=== PATIENT | female | born 1955 | race Caucasian/White ===

== ENCOUNTER 2020-04-25 19:12 | Outpatient (REF) | payer BC, MEDICARE, SELFPAY ==
--- NOTE | ~2020-04-25 | MR_ITS ---
EXAMINATION: MR CERVICAL SPINE WITHOUT CONTRAST CLINICAL INFORMATION: 65-year-old with severe headaches. Cervical disc herniation. COMPARISON: 09/21/2014 MRI TECHNIQUE: MRI of the cervical spine was obtained using routine sequences without contrast. FINDINGS: Alignment: Lordotic curvature is predominately maintained. There is 2 mm of anterolisthesis at C7-T1 stable in appearance. No retrolisthesis. Craniocervical Junction/C1-C2 Articulations:?Intact and aligned. There are degenerative changes at the dens and anterior atlantodental joint similar to the previous exam. Visualized Intracranial Structures: Within normal limits. Vertebral Bodies: Normal height. Bone Marrow: No suspicious marrow replacing process or bone marrow edema. There is ferromagnetic artifact from anterior spinal fusion hardware at the C5-C6 level. No focally aggressive osseous lesions. C2-C3: Disc space height is well maintained without disc herniation or spondylosis. There is oxns-iz-kwapusyk facet arthrosis, right more than left, without significant canal or neural foraminal stenosis. C3-C4: Disc space height is well maintained. Small central disc protrusion noted, slightly more prominent than on the previous exam with wbdt-ku-toijxgub flattening of the central dural sac without cord impingement. Mild ligamentum flavum thickening or buckling noted. Moderate bilateral facet arthrosis noted, progressed from previous study without significant spinal canal or neural foraminal stenosis. C4-C5: Disc space height is well maintained with minor anterior marginal endplate spurring. There is a broad-based posterior disc osteophyte complex, with effacement of the central dural sac abutting the ventral aspect of the spinal cord without cord compression. There is minor facet arthrosis on the left, and there is facet hypertrophic change with ankylosis on the right. There is mild left-sided and moderate right-sided neural foraminal stenosis. Facet ankylosis on the right has developed since the previous MRI and posterior disc osteophyte complex is slightly more prominent, with borderline central spinal canal stenosis on current study. C5-C6: Previous ACDF noted at this level since the prior study. Broad-based posterior osteophytic ridging is noted, but improved from previous study on the left, with flattening of the dural sac asymmetric to the left without spinal cord impingement or significant spinal canal stenosis. There is bfdvlzgk-jc-mzbdqb bony neural foraminal stenosis on the left stable in appearance. C6-C7: Moderate loss of disc space height has progressed from previous study at this level, with development of moderate anterior marginal spondylosis deformans. Broad-based central disc herniation has progressed from previous exam, with moderate flattening of the dural sac on current study without cord impingement. Ligamentum flavum thickening has progressed at this level, now with reen-db-dvyoqimm central spinal canal stenosis. There is moderate bilateral facet arthrosis progressed from previous study with bilateral uncovertebral arthrosis, left more than right on current exam. There is moderate left-sided neural foraminal stenosis developed since previous exam. C7-T1: Disc space height is well maintained with slight anterolisthesis stable in appearance. No disc herniation identified. There is facet ankylosis on the right and partially on the left, which has developed since the previous exam with no significant canal or neural foraminal stenosis. T1-T2: Mild anterior marginal endplate spurring stable in appearance. There is moderate facet arthrosis on the left progressed from previous exam, now with mild left-sided neural foraminal stenosis at this level. There is facet hypertrophic degenerative change on the right at T2-T3 progressed from previous study with mild right-sided neural foraminal stenosis. The cervical and visualized upper thoracic spinal cord is normal in signal intensity throughout without focal lesion, edema or syrinx formation. MR/MR cervical spine wo con IMPRESSION: 1. Status post ACDF at C5-C6, as described above, with metallic hardware artifact and posterior osteophytic ridging with an improved appearance to the canal at this level since prior study. Jxqtbqvr-kk-lcrbsm bony neural foraminal stenosis on the left stable in appearance. 2. Multilevel bilateral facet arthrosis, some of which is progressed from previous exam, now with ankylosis of the right C4-C5 facet joint since prior study and progression of bilateral facet arthrosis at C3-C4. There is facet joint ankylosis on the right at C7-T1 which has developed since previous exam, and there is moderate bilateral facet arthrosis at C6-C7 progressed from previous study. 3. Posterior disc osteophyte complex at C4-C5 more prominent than on the previous exam which abuts the ventral aspect of the spinal cord without cord compression, with ptgqxopcgb-td-mkkc canal stenosis at this level on current study. Mild central disc protrusion at C3-C4 slightly progressed and broad-based central disc protrusion at C6-C7 progressed from previous exam, with development of discogenic degenerative change and spondylosis at this level since the prior study, now with wcic-kn-vgphgikq central spinal canal stenosis. 4. Stable mild anterolisthesis at C7-T1. 5. Upper thoracic facet arthrosis, as described above.
== END 2020-04-25 19:13 | disposition home or self-care (01) ==
LOC: HO.MRI 19:12
PROVIDERS: PCP Family Medicine; Visit Provider Psychiatry & Neurology Neurology
DX: M50.20 Other cervical disc displacement, unspecified cervical region (principal)
CPT/HCPCS: 72141

== ENCOUNTER → 2020-05-03 13:31 | Outpatient (BNVA) | payer MEDICARE, SELFPAY | PROVIDERS: PCP Family Medicine; Visit Provider Internal Medicine | DX: R07.2 Precordial pain (principal); I10 Essential (primary) hypertension; I51.7 Cardiomegaly; I49.1 Atrial premature depolarization | CPT/HCPCS: 99212 ==

== ENCOUNTER 2020-08-18 15:30 | Emergency (ER) | payer MEDICARE, SELFPAY ==
[2020-08-18 15:33] VITALS: BP 140/84; PULSE 120; RESP 20; TEMP 37.2; O2SAT 95; BMI 39.1
== END 2020-08-18 18:12 | disposition left against medical advice (07) ==
PROVIDERS: Emergency Provider Emergency Medicine; PCP Family Medicine
DX: R51.9 Headache, unspecified (principal)
CPT/HCPCS: 99281; 99282

== ENCOUNTER 2020-08-28 13:57 | Outpatient (REF) | payer MEDICARE, SELFPAY ==
[2020-08-28 14:04] LABS: MANUAL DIFF FLAG NO
[2020-08-28 14:41] LABS: Basophils Absolute Auto 0.1 X10*3/uL (0.0-0.2); Basophils Percent Auto 0.6 % (0-2); Eosinophils Absolute Auto 0.2 X10*3/uL (0.0-0.4); Eosinophils Percent Auto 1.8 % (0-4); Hemoglobin 16.5 g/dl (12.0-16.0); Imm Gran Abs Auto 0.02 X10*3/uL (0.00-0.03); Imm Gran Pct Auto 0.2 % (0.0-0.4); Lymphocytes Absolute Auto 2.5 X10*3/uL (1.2-4.9); Lymphocytes Percent Auto 29.2 % (20-40); Mean Corpuscular HGB Conc 34.4 g/dl (31.0-35.0); Mean Corpuscular Hemoglobin 30.3 pg (27.0-33.0); Mean Corpuscular Volume 88.1 fL (80-98); Mean Platelet Volume 10.4 fL (9.4-12.3); Monocytes Absolute Auto 0.6 X10*3/uL (0.1-1.2); Monocytes Percent Auto 7.4 % (2-11); Neutrophils Absolute Auto 5.2 X10*3/uL (2.0-8.3); Neutrophils Percent Auto 60.8 % (45-73); Platelet Count 272 X10*3/uL (160-400); Red Blood Count 5.45 X10*6/uL (4.20-5.50); Red Cell Distribution Width 13.2 % (11.0-16.0); White Blood Count 8.5 X10*3/uL (4.8-10.8)
[2020-08-28 15:14] LABS: Anion Gap 13 (12-20); Blood Urea Nitrogen 14 mg/dL (9-16); Calcium 9.1 mg/dL (8.4-10.2); Carbon Dioxide 21 mmol/L (22-29); Chloride 112 mmol/L (96-108); Estimated Glomerular Filt Rate 50; Glucose Random 95 mg/dL (60-115); Potassium 4.4 mmol/L (3.3-5.1); Sodium 142 mmol/L (135-145)
[2020-08-28 15:30] LABS: Erythrocyte Sedimentation Rate 7 MM/HR (0-20)
== END 2020-08-28 13:58 | disposition home or self-care (01) ==
LOC: HO.LAB 13:57
PROVIDERS: PCP Family Medicine; Visit Provider Psychiatry & Neurology Neurology
DX: G43.909 Migraine, unspecified, not intractable, without status migrainosus (principal)
CPT/HCPCS: 36415; 80048; 85025; 85652

== ENCOUNTER 2020-09-10 09:22 | Outpatient (REF) | payer MEDICARE, SELFPAY ==
--- NOTE | ~2020-09-10 | CT_ITS ---
EXAMINATION: CT ANGIOGRAM BRAIN, HEAD CLINICAL INFORMATION: Migraine. COMPARISON: Head CT 05/05/2019. TECHNIQUE: Test bolus sequences followed by intravenous administration 75 mL of Omnipaque 350 intravenous contrast. Helical imaging was performed in the axial plane from the skull base to the vertex. Delayed postcontrast imaging of the head was also performed. The data was processed at the isotope technologist workstation for generation of MIP sequences. Three-dimensional volume rendered reformatted images were also generated at an offline 3-D workstation. This CT examination was performed using dose optimization techniques as appropriate, variously including the following: *Automated exposure control *Adjustment of mA and/or kV according to patient size (this includes techniques or standardized protocols for targeted exams where dose is matched to indication/reason for exam; i.e. extremities or head) *Use of iterative reconstruction technique FINDINGS: The anterior and posterior intracranial arterial circulations are widely patent without significant arterial stenosis and without acute arterial occlusion. No aneurysms and no high flow vascular malformations. There is no pathologic enhancement intracranially. There is no intracranial hemorrhage, hydrocephalus, extra-axial surface collection, midline shift, or other herniation pattern. Barbour to white matter differentiation is diffusely maintained without evidence of an evolved acute territorial infarct. The basilar cisterns are preserved. No significant soft tissue abnormality. No acute osseous abnormality. The paranasal sinuses and the mastoid air cells are well aerated. CT/CT angio head IMPRESSION: Unremarkable CTA of the head.
[2020-09-10] MEDS: iohexoL 350 MG/ML 100 ML INFUS..BTL IV (10:40)
== END 2020-09-10 09:23 | disposition home or self-care (01) ==
LOC: HO.CT 09:22
PROVIDERS: Visit Provider Psychiatry & Neurology Neurology
DX: G43.909 Migraine, unspecified, not intractable, without status migrainosus (principal)
CPT/HCPCS: 70496; Q9967

== ENCOUNTER → 2020-11-08 12:22 | Outpatient (BNVA) | payer MEDICARE, SELFPAY | PROVIDERS: PCP Family Medicine; Referring Provider Family Medicine; Visit Provider Internal Medicine | DX: R07.2 Precordial pain (principal); I10 Essential (primary) hypertension; I51.7 Cardiomegaly; I49.1 Atrial premature depolarization | CPT/HCPCS: 93005; 99212 ==

== ENCOUNTER 2021-03-27 13:47 | Emergency (ER) | payer MEDICARE, SELFPAY ==
--- NOTE | ~2021-03-27 | CT_ITS ---
EXAMINATION: CT ABDOMEN AND PELVIS WITH CONTRAST CLINICAL INFORMATION: Severe abdominal pain to lower quadrants. COMPARISON: CT abdomen/pelvis dated from 11/11/2007. TECHNIQUE: Multidetector volumetric images were obtained from the superior aspect of the liver through the pubic symphysis following administration 85 mL of Omnipaque 350 intravenous contrast. Sagittal and coronal reformatted images were obtained on the technologist's workstation. Oral contrast: No This CT examination was performed using dose optimization techniques as appropriate, variously including the following: *Automated exposure control *Adjustment of mA and/or kV according to patient size (this includes techniques or standardized protocols for targeted exams where dose is matched to indication/reason for exam; i.e. extremities or head) *Use of iterative reconstruction technique DLP: 822 mGy-cm FINDINGS: LUNG BASES: Grouped of subcentimeter calcifications in the right lung base are stable since 2007. There is however increase indeterminate peripheral reticulation. LIVER, GALLBLADDER, AND BILIARY TREE: The liver is normal in size, shape and attenuation without focal abnormalities. Prior cholecystectomy with expected mild intra and extrahepatic biliary ductal dilatation. PANCREAS: Unremarkable. SPLEEN: Unremarkable. ADRENAL GLANDS: Unremarkable. KIDNEYS AND URETERS: The kidneys are normal in size, shape, and attenuation. A few cortical hypodensities are too small to characterize and are overwhelmingly likely to be of no clinical significance. No hydronephrosis, hydroureter, or calculi seen. No perinephric stranding. BLADDER: Underdistended and suboptimally assessed. No significant perivesical fat stranding. GASTROINTESTINAL TRACT: The stomach and small bowel are nondilated. There are a few distended and fluid-filled loops of small bowel in the lower abdomen/pelvis, for instance image 79 of series 3 which could be seen in the setting of gastroenteritis/diarrhea. The appendix is not definitely visualized; there are however no inflammatory changes at the cecal base nor right lower quadrant to suspect acute appendicitis. An indeterminate 1.3 cm nodule posterior to the cecum (3:73) is unchanged since 2007. Mild diverticulosis without evidence of acute inflammatory bowel changes. No bowel obstruction. ABDOMINAL WALL: No significant hernia is appreciated. LYMPH NODES: No lymphadenopathy by size criteria. VASCULAR: Unremarkable. PELVIC VISCERA: Bilateral tubal ligation devices and prior hysterectomy. No pelvic masses. OSSEOUS STRUCTURES: No acute or aggressive osseous abnormalities. Mild thoracolumbar spondylosis. CT/CT abdomen pelvis w con IMPRESSION: Fluid-filled distended loops of small bowel in the lower abdomen/pelvis which could be related with diarrhea or gastroenteritis in the appropriate clinical context. Mild diverticulosis but no evidence of acute diverticulitis. Increased peripheral reticulation in the visualized lung bases for which further correlation with a nonemergent diagnostic chest CT could be obtained. There is redemonstration of an indeterminate group of calcifications in the right lung base.
--- NOTE | ~2021-03-27 | XR_ITS ---
EXAMINATION: XR ABDOMEN KUB CLINICAL INDICATION: Pain in the abdomen and rectum. COMPARISON: None TECHNIQUE: AP view of the abdomen. FINDINGS: There is scattered stool and gas seen throughout the colon without any significant distention. There are multiple surgical gian in the right upper quadrant likely from previous cholecystectomy. There is no organomegaly. XR/XR KUB IMPRESSION: Mild constipation.
[2021-03-27 14:01] VITALS: BP 134/88; PULSE 95; RESP 18; TEMP 36.4; O2SAT 98; BMI 36.6
--- NOTE | 2021-03-27 14:53 | ED_ITS ---
HPI - Abdominal Pain General Chief Complaint: Abdominal Pain Stated Complaint: diff urinating Time Seen by Provider: 03/27/21 14:53 Source: patient Mode of arrival: ambulatory Limitations: no limitations History of Present Illness HPI narrative: This is a 66-year-old female past medical history significant for left ventricular hypertrophy, PAC's, hypertension presenting to the emergency department with concerns of rectal bleeding, nausea, abdominal pain and back pain x1 week. Patient tells me that she thinks she is bleeding rectally because she is currently constipated. She tells me that this happens to her frequently. She is having diffuse abdominal pain and reports associated back pain. Patient has tried taking ytuy-fgc-xsskbde stool softeners however she tells me they have not helped her at all. Denies shortness of breath, chest pain, vomiting, diarrhea, weakness, headache, vision changes, lethargy. MD elicited complaint: abdominal pain Onset (ago): week(s) (1) Pain Consistency: constant Location: diffuse Severity: moderate Radiation: none Migration to: no migration Exacerbating factors: nothing Relieving factors: nothing Associated symptoms: nausea and other (Back pain (w/o red flag symptoms)) Treatments prior to arrival: other (Has tried fonb-fvq-yuynmhf stool softeners.) Related Data Home Medications Medication Instructions Recorded Confirmed duloxetine 30 mg capsule,delayed 60 mg PO DAILY cap 05/03/20 11/08/20 release alirocumab 75 mg/mL subcutaneous mg SUBCUT Q2W 11/08/20 11/08/20 pen injector (Praluent Pen) aspirin 81 mg tablet,delayed 81 mg PO DAILY 11/08/20 11/08/20 release budesonide-formoterol HFA 160 INHALATION 11/08/20 11/08/20 mcg-4.5 mcg/actuation aerosol inhaler (Symbicort) gabapentin 300 mg capsule 600 mg PO BEDTIME cap 11/08/20 11/08/20 topiramate 50 mg tablet 50 mg PO BEDTIME tab 11/08/20 11/08/20 verapamil 120 mg tablet,extended 120 mg PO DAILY 11/08/20 11/08/20 release Previous Rx's Medication Instructions Recorded fluconazole 150 mg tablet 150 mg PO DAILY #1 tab 03/27/21 nystatin 100,000 unit/gram topical 1 appl TOPICAL BID #60 g 03/27/21 powder polyethylene glycol 3350 17 17 g PO BID PRN #238 g 03/27/21 gram/dose oral powder (Miralax) sennosides 8.6 mg tablet (senna) 8.6 mg PO BEDTIME #14 tab 03/27/21 Allergies Allergy/AdvReac Type Severity Reaction Status Date / Time prochlorperazine Allergy Severe ANXIETY Verified 11/08/20 12:46 [From COMPAZINE] codeine [CODEINE] Allergy Unknown HALLUCINATI Verified 11/08/20 12:46 ONS droperidol [From Allergy Unknown TACHYCARDIA Verified 11/08/20 12:46 INAPSINE] Sulfa (Sulfonamide Allergy Unknown HIVES Verified 11/08/20 12:46 Antibiotics) [SULFA (SULFONAMIDE ANTIBIOTICS)] sulfacetamide Allergy Unknown unk Verified 11/08/20 12:46 oxycodone [From AdvReac Unknown NAUSEA & Verified 11/08/20 12:46 PERCODAN] VOMITING, HALLUCINATIONS Compazine Allergy Unknown unk Uncoded 11/08/20 12:46 From REGLAN Allergy Unknown UNKNOWN Uncoded 11/08/20 12:46 Percodan Allergy Unknown unk Uncoded 11/08/20 12:46 Statins AdvReac Unknown muscle Uncoded 11/08/20 12:46 aches Review of Systems Review of Systems Constitutional : No Weight loss, No Fever, No Chills, No Fatigue, No Malaise ENT/Mouth : No sore throat, No Rhinorrhea Eyes: No Eye Pain, No Swelling, No Redness Cardiovascular : No Chest Pain, No SOB, No Dyspnea on Exertion, No Orthopnea, No Edema, No Palpitations Respiratory : No Cough, No Sputum, No Wheezing Gastrointestinal : + Nausea, No Vomiting, No Diarrhea, + Constipation, + abdominal Pain, No Hematochezia, No Melena Genitourinary : No Dysuria, No Urinary Frequency, No Hematuria, Musculoskeletal : No joint pain, No Myalgias, No Joint Swelling, + back pain Skin : No Skin Lesions, No rash Neuro : No Weakness, No Numbness, No Dizziness, No Headache Psych : No Anxiety/Panic, No Depression All other systems reviewed and are negative Yes all other systems are reviewed and are negative Physical Exam Verdana 4l Vital Signs: Verdana 4d Verdana 4d Vital Signs: Verdana 4d Verdana 4Bd Last Vital Signs Verdana 4d Senior Oracle Database Developer New 4d Senior Oracle Database Developer New 4d Temp 97.6 F 03/27/21 14:01 Senior Oracle Database Developer New 4d Pulse 74 03/27/21 20:00 Senior Oracle Database Developer New 4d Resp 15 03/27/21 20:00 BP 139/75 03/27/21 20:00 Pulse Ox 96 03/27/21 20:00 BMI result Body Mass Index 36.6 VSS Appearance: Alert.? Oriented X3.? No acute distress.? Head: Normocephalic, atraumatic, no step-offs or deformities Eyes: Pupils equal, round and reactive to light.? ENT: Pharynx normal.? Neck: Normal inspection.? Neck supple.? CVS: Normal heart rate and rhythm.? Pulses normal.? Respiratory: No respiratory distress.? Breath sounds normal.? Abdomen: Soft and + diffusely tender, slightly distended abdomen with normoactive bowel sounds. Sensitive exam: Excoriated in broken down perennial area. Consistent with yeast. Skin: Skin warm and dry.? Normal skin color.? Normal skin turgor.? Extremities: No lower extremity edema.? No calf ttp. 5/5 strength to bilateral upper and lower extremities Back: No midline tenderness, no C-spine tenderness, full range of motion, no CVA tenderness bilaterally Neuro: Oriented X 3.? No motor deficit.? No sensory deficit. Course Reevaluation(s) Reevaluation #1: Hemoglobin and hematocrit noted to be slightly elevated however this is been present the past on 08/28/2020. No acute electrolyte abnormalities. Trichomonas and yeast negative. UA currently pending. Patient is COVID nega tive. At this time pending CT of abdomen and pelvis with contrast. Time: 19:48 Reevaluation #2: OBS negative. Unlikely GI bleed. I suspect that patient noted blood in her stool/in the toilet secondary to see breakdown around her rectum that appears raw, and is bleeding and friable. Time: 19:50 Reevaluation #3: CT suggesting gastroenteritis. Patient reports that she had diarrhea about a week ago however at this time her main concern is constipation. There are reticulations noted to the lower lung bases, discuss this with the patient and advised her to follow-up with her PCP. At this time will discharge patient home with medications to treat a fungal infection in the perineal area, I will advise her to take Colace/senna and MiraLax as needed for constipation. I have advised her to follow-up with her PCP. In return with new or worsening symptoms. Time: 20:28 MDM - Abdominal Pain MDM Narrative Medical decision making narrative: 1458 66 yo F pmhx htn presents to ed with concerns of constipation, nausea, back pain and diffuse abodminal pain X1 week. No relief with OTC stool softners PE significant for a diffusly tender abdomen, slightly distened with normoactive bowel sounds. Perennial area is excoriated and broken down, consistent with yeast. Based off history and physical examination low suspicion for small bowel obstruction. A KUB will be done to assess stool burden. Medical Records Attestation: I reviewed the patient's medical records. Lab Data Attestation: I reviewed the patient's lab results. Result diagrams: 03/27/21 16:22 03/27/21 16:22 Labs: Lab Results 03/27/21 03/27/21 03/27/21 Range/Units 16:14 16:22 16:22 WBC 6.9 (4.8-10.8) X10*3/uL RBC 5.39 (4.20-5.50) X10*6/uL Hgb 16.1 H (12.0-16.0) g/dl Hct 48.9 H (37.0-47.0) % MCV 90.7 (80.0-98.0) fL MCH 29.9 (27.0-33.0) pg MCHC 32.9 (31.0-35.0) g/dl RDW 13.6 (11.0-16.0) % Plt Count 219 (160-400) X10*3/uL MPV 10.8 (9.4-12.3) fL Immature Gran % (Auto) 0.3 (0.0-0.4) % Neut % (Auto) 55.9 (45-73) % Lymph % (Auto) 32.0 (20-40) % [place] % (Auto) 9.0 (2-11) % Eos % (Auto) 2.2 (0-4) % Baso % (Auto) 0.6 (0-2) % Lymph # (Auto) 2.2 (1.2-4.9) X10*3/uL [place] # (Auto) 0.6 (0.1-1.2) X10*3/uL Eos # (Auto) 0.2 (0.0-0.4) X10*3/uL Baso # (Auto) 0.0 (0.0-0.2) X10*3/uL Abs Immat Gran (auto) 0.02 (0.00-0.03) X10*3/uL Absolute Neuts (auto) 3.9 (2.0-8.3) x10*3/uL Absolute Nucleated RBC 0.000 (0.0-0.012) X10*3/uL Nucleated RBC % (auto) 0.0 (0.0-0.2) /100WBC Sodium 142 (135-145) mmol/L Potassium 4.7 (3.3-5.1) mmol/L Chloride 110 H (96-108) mmol/L Carbon Dioxide 26 (22-29) mmol/L Anion Gap 11 L (12-20) BUN 14 (9-16) mg/dL Creatinine 1.12 (0.5-1.4) mg/dL Estim Creat Clear Calc 59.3 Estimated GFR 49 Random Glucose 97 (60-115) mg/dL Calcium 9.1 (8.4-10.2) mg/dL Magnesium 2.3 (1.6-2.6) mg/dL Total Bilirubin 0.3 (0.0-1.0) mg/dL AST 20 (5-31) U/L ALT 18 (0-31) U/L Alkaline Phosphatase 89 (39-117) U/L Total Protein 5.9 L (6.5-8.0) g/dL Albumin 3.5 (3.5-5.0) g/dL Stool Occult Blood NEGATIVE (NEGATIVE) COVID-19 (FAROOQ) (Negative) COVID-19 Clin Com 03/27/21 Range/Units 16:22 WBC (4.8-10.8) X10*3/uL RBC (4.20-5.50) X10*6/uL Hgb (12.0-16.0) g/dl Hct (37.0-47.0) % MCV (80.0-98.0) fL MCH (27.0-33.0) pg MCHC (31.0-35.0) g/dl RDW (11.0-16.0) % Plt Count (160-400) X10*3/uL MPV (9.4-12.3) fL Immature Gran % (Auto) (0.0-0.4) % Neut % (Auto) (45-73) % Lymph % (Auto) (20-40) % [place] % (Auto) (2-11) % Eos % (Auto) (0-4) % Baso % (Auto) (0-2) % Lymph # (Auto) (1.2-4.9) X10*3/uL [place] # (Auto) (0.1-1.2) X10*3/uL Eos # (Auto) (0.0-0.4) X10*3/uL Baso # (Auto) (0.0-0.2) X10*3/uL Abs Immat Gran (auto) (0.00-0.03) X10*3/uL Absolute Neuts (auto) (2.0-8.3) x10*3/uL Absolute Nucleated RBC (0.0-0.012) X10*3/uL Nucleated RBC % (auto) (0.0-0.2) /100WBC Sodium (135-145) mmol/L Potassium (3.3-5.1) mmol/L Chloride (96-108) mmol/L Carbon Dioxide (22-29) mmol/L Anion Gap (12-20) BUN (9-16) mg/dL Creatinine (0.5-1.4) mg/dL Estim Creat Clear Calc Estimated GFR Random Glucose (60-115) mg/dL Calcium (8.4-10.2) mg/dL Magnesium (1.6-2.6) mg/dL Total Bilirubin (0.0-1.0) mg/dL AST (5-31) U/L ALT (0-31) U/L Alkaline Phosphatase (39-117) U/L Total Protein (6.5-8.0) g/dL Albumin (3.5-5.0) g/dL Stool Occult Blood (NEGATIVE) COVID-19 (FAROOQ) Negative (Negative) COVID-19 Clin Com See Note Imaging Data KUB: Attestation: I personally reviewed and interpreted this imaging study as follows: Radiologist's impression: FINDINGS: There is scattered stool and gas seen throughout the colon without any significant distention. There are multiple surgical gian in the right upper quadrant likely from previous cholecystectomy. There is no organomegaly. XR/XR KUB IMPRESSION: Mild constipation. Critical Care Time Critical Care Time Critical Care Time: No Discharge Plan Discharge Clinical Impression: Candidal intertrigo, Constipation, Abdominal pain Patient Disposition: Home, Self-Care Instructions: Constipation (ED), Constipation (DC), Abdominal Pain (ED), Fleet Enema (ED) Additional Instructions: Take your medications as prescribed. If you were prescribed antibiotics today, it is important that you take your medication to their entirety, do not skip any doses, do not finish them early. Follow-up with your primary care provider this week. Return to the emergency department with new or worsening symptoms. In case of emergency call [address] scan was suggestive of gastroenteritis, or inflammation of the stomach. It showed mild diverticulosis. And it showed reticulation in the lower lung bases, I advise you follow-up with your PCP to further look and to the reticulation in the lower lung bases you are not having chest pain or shortness of breath at this time I do not feel as though an emergency T is warranted. There also calcifications noted on her CT scan it appears as though these have been present the past and they appear to be unchanged. Please take fluconazole in 2 days. This helps treat a fungal infection. Use nystatin powder to help treat this fungal infection. You tested negative for covid today. Prescriptions: New sennosides [senna] 8.6 mg tablet 8.6 mg PO BEDTIME Qty: 14 0RF polyethylene glycol 3350 [Miralax] 17 gram/dose powder 17 g PO BID PRN (Reason: constipation) Qty: 238 0RF fluconazole 150 mg tablet 150 mg PO DAILY Qty: 1 0RF nystatin 100,000 unit/gram powder 1 appl topical BID Qty: 60 0RF No Action duloxetine 30 mg capsule,delayed release(DR/EC) 60 mg PO DAILY 0RF topiramate 50 mg tablet 50 mg PO BEDTIME 0RF verapamil 120 mg tablet extended release 120 mg PO DAILY 0RF Praluent Pen 75 mg/mL pen injector subcut Q2W 0RF budesonide-formoterol [Symbicort] 160-4.5 mcg/actuation HFA aerosol inhaler inhalation 0RF gabapentin 300 mg capsule 600 mg PO BEDTIME 0RF aspirin 81 mg tablet,delayed release (DR/EC) 81 mg PO DAILY 0RF Referrals: Mdahu Gifford MD [Primary Care Provider] - 2 days Stand Alone Forms: Work/School Release PMFSH Past Medical History Attestation statement: The following information was validated with the patient. Source: old records reviewed and nursing notes reviewed Medical History Essential hypertension PAC (premature atrial contraction) Surgical History History of cholecystectomy History of hysterectomy Family History Family History Father CVD (cardiovascular disease) Mother No problems noted. Social History Social History Patient Tobacco Use Status: Never used Tobacco Advance Directives: No Advance Directives Information Provided: Yes
[2021-03-27 16:23] LABS: OBS Int Ctl Valid YES; OBS1 NEGATIVE (NEGATIVE)
[2021-03-27 16:31] LABS: Basophils Percent Auto 0.6 % (0-2); Eosinophils Absolute Auto 0.2 X10*3/uL (0.0-0.4); Eosinophils Percent Auto 2.2 % (0-4); Hematocrit 48.9 % (37.0-47.0); Hemoglobin 16.1 g/dl (12.0-16.0); Imm Gran Abs Auto 0.02 X10*3/uL (0.00-0.03); Imm Gran Pct Auto 0.3 % (0.0-0.4); Lymphocytes Absolute Auto 2.2 X10*3/uL (1.2-4.9); MANUAL DIFF FLAG NO; Mean Corpuscular HGB Conc 32.9 g/dl (31.0-35.0); Mean Corpuscular Hemoglobin 29.9 pg (27.0-33.0); Mean Corpuscular Volume 90.7 fL (80.0-98.0); Mean Platelet Volume 10.8 fL (9.4-12.3); Monocytes Absolute Auto 0.6 X10*3/uL (0.1-1.2); Neutrophils Absolute Auto 3.9 x10*3/uL (2.0-8.3); Neutrophils Percent Auto 55.9 % (45-73); Platelet Count 219 X10*3/uL (160-400); Red Blood Count 5.39 X10*6/uL (4.20-5.50); Red Cell Distribution Width 13.6 % (11.0-16.0); White Blood Count 6.9 X10*3/uL (4.8-10.8)
[2021-03-27 16:47] LABS: COVID-19 Test Negative (Negative); IDNOW Serial# 9DD0AD1C
[2021-03-27 16:51] LABS: Alanine Aminotransferase 18 U/L (0-31); Albumin Level 3.5 g/dL (3.5-5.0); Alkaline Phosphatase 89 U/L (39-117); Anion Gap 11 (12-20); Aspartate Amino Transferase 20 U/L (5-31); Bilirubin Total 0.3 mg/dL (0.0-1.0); Blood Urea Nitrogen 14 mg/dL (9-16); Calcium 9.1 mg/dL (8.4-10.2); Carbon Dioxide 26 mmol/L (22-29); Chloride 110 mmol/L (96-108); Creatinine Clr Calc Pharmacy 59.3; Estimated Glomerular Filt Rate 49; Glucose Random 97 mg/dL (60-115); Magnesium 2.3 mg/dL (1.6-2.6); Potassium 4.7 mmol/L (3.3-5.1); Sodium 142 mmol/L (135-145); Total Protein 5.9 g/dL (6.5-8.0)
[2021-03-27] MEDS: iohexoL 350 MG/ML 100 ML INFUS..BTL IV (19:09)
[2021-03-27] MEDS: Sodium Phosphate,Mono-Dibasic 133 ML ENEMA PR (19:11)
[2021-03-27] MEDS: Fluconazole 150 MG TABLET PO (19:11)
[2021-03-27] MEDS: Nystatin Powder 15 GM BOTTLE 1 APPL TOPICAL (19:28)
[2021-03-27 20:00] VITALS: BP 139/75; PULSE 74; RESP 15; O2SAT 96
== END 2021-03-27 20:39 | disposition home or self-care (01) ==
PROVIDERS: Physician Assistant; Emergency Provider Emergency Medicine; PCP Family Medicine
DX: B37.2 Candidiasis of skin and nail (principal); K59.00 Constipation, unspecified; R10.9 Unspecified abdominal pain; Z20.822 Contact with and (suspected) exposure to COVID-19; I10 Essential (primary) hypertension
CPT/HCPCS: 74018; 74177; 80053; 82272; 83735; 85025; 87635; 99284; Q9967

== ENCOUNTER → 2021-10-16 12:44 | Outpatient (BNVA) | payer MEDICARE, SELFPAY | PROVIDERS: PCP Family Medicine; Referring Provider Family Medicine; Visit Provider Internal Medicine | DX: Z01.810 Encounter for preprocedural cardiovascular examination (principal); I10 Essential (primary) hypertension; I49.1 Atrial premature depolarization; Z86.711 Personal history of pulmonary embolism; Z86.718 Personal history of other venous thrombosis and embolism; Z79.01 Long term (current) use of anticoagulants | CPT/HCPCS: 93005; 99212 ==

== ENCOUNTER → 2022-04-08 13:27 | Outpatient (BNVA) | payer MEDICARE, SELFPAY | PROVIDERS: PCP Family Medicine; Visit Provider Internal Medicine | DX: I49.1 Atrial premature depolarization (principal); E78.5 Hyperlipidemia, unspecified; I10 Essential (primary) hypertension | CPT/HCPCS: 99212 ==

== ENCOUNTER 2022-05-07 18:34 | Emergency (ER) | payer MEDICARE, SELFPAY ==
--- NOTE | ~2022-05-07 | CT_ITS ---
EXAMINATION: CT ABDOMEN AND PELVIS WITH AND WITHOUT CONTRAST: CT GI BLEEDING STUDY CLINICAL INFORMATION: right sided abd pain, rectal bleeding . COMPARISON: 03/27/2021. TECHNIQUE: Multidetector volumetric imaging was performed from the lung bases to the pubic symphysis before and after the administration of: Intravenous contrast: 80 mL Omnipaque 350 Postcontrast views were obtained both in the arterial and delayed venous phases. No contrast reaction reported MIP coronal, sagittal and coronal reformatted images were obtained on the technologist workstation. This CT examination was performed using dose optimization techniques as appropriate, variously including the following: *Automated exposure control *Adjustment of mA and/or kV according to patient size (this includes techniques or standardized protocols for targeted exams where dose is matched to indication/reason for exam; i.e. extremities or head) *Use of iterative reconstruction technique Total exam dose-length product 2296 mGy-cm FINDINGS: STOMACH: No abnormal wall thickening or mass. No intraluminal contrast accumulation to suggest hemorrhage. SMALL BOWEL: No abnormal wall thickening or dilation. No intraluminal contrast accumulation to suggest hemorrhage. COLON: No intraluminal contrast accumulation to suggest hemorrhage. No colonic wall thickening or pericolonic inflammatory changes. No appreciable colonic diverticulosis. Appendix is not seen, though no findings of acute appendicitis are identified in the right lower quadrant. The previously seen nodule posterior to the cecum is better seen on the prior study. LUNG BASES: Linear platelike dependent atelectasis is present in the bases. No nodules, mass, or focal consolidation. PLEURA: No pleural effusion. LIVER, GALLBLADDER, AND BILIARY TREE: The liver is normal in size, shape, and attenuation. No focal hepatic lesion or biliary ductal dilatation is present. Gallbladder is surgically absent. PANCREAS: Normal; no mass or surrounding fluid. SPLEEN: Normal size. No focal lesion. ADRENAL GLANDS: Normal; no mass. KIDNEYS AND URETERS: The kidneys are normal in size, shape, and attenuation. Multiple bilateral simple appearing parapelvic cysts are noted. No suspicious lesions. No hydronephrosis, hydroureter, or calculi. ABDOMINAL WALL: No hernia seen. LYMPHOVASCULAR STRUCTURES: No lymphadenopathy. The aorta is normal in caliber. BLADDER: No focal mass or wall thickening seen. No bladder calculi. PELVIC VISCERA: Uterus is surgically absent. No adnexal lesions. OSSEOUS STRUCTURES: Mild multilevel degenerative disc disease and more moderate degenerative spondylosis in the lumbar spine. Mild osteoarthritis of the hips. No fracture or malalignment. CT/CT gi bleed abd pel wo/w IVcon IMPRESSION: No acute intra-abdominal or intrapelvic abnormalities are identified. No appreciable findings of active gastrointestinal hemorrhage.
[2022-05-07 19:35] VITALS: BP 156/89; PULSE 101; RESP 16; TEMP 36.1; O2SAT 98; BMI 36.6
--- NOTE | 2022-05-07 19:36 | ED_ITS ---
HPI - Abdominal Pain General Chief Complaint: GI Bleed <JARED Fernandez Last Filed: 05/07/22 19:44> Stated Complaint: abd pain, back pain, blood in rectum <JARED Fernandez Last Filed: 05/07/22 19:44> Time Seen by Provider: 05/07/22 20:12 <JARED Fernandez - Last Filed: 05/07/22 19:44> Source: patient <DO Lizzeth Taylor Last Filed: 05/07/22 22:03> Mode of arrival: ambulatory <DO Lizzeth Taylor Last Filed: 05/07/22 22:03> Limitations: no limitations <DO Lizzeth Taylor Last Filed: 05/07/22 22:03> History of Present Illness HPI narrative: 67-year-old female presents emergency department with recurrent abdominal pain has been on the right sided. Patient states that her work has been going to the traveling freight [employer] and she states she had some point at [facility] was told she had a mass. While she was waiting for follow-up with GI to get a co lonoscopy she states she had quite a bit of rectal bleeding which has been off and on since then. She states they never found a mass she followed up with colorectal surgeon recently at [facility] as well he was told everything was okay. Patient denies fevers chills chest pain or shortness of breath. She states that she had more bleeding today and was told by her that she be evaluated. <DO Lizzeth Taylor Last Filed: 05/07/22 22:03> MD elicited complaint: abdominal pain <DO Lizzeth Taylor Last Filed: 05/07/22 22:03> Related Data Home Medications: Home Medications Medication Instructions Recorded Confirmed duloxetine 30 mg capsule,delayed 60 mg PO DAILY 05/03/20 04/08/22 release budesonide-formoterol HFA 160 inhalation 11/08/20 04/08/22 mcg-4.5 mcg/actuation aerosol inhaler (Symbicort) gabapentin 300 mg capsule 600 mg PO BEDTIME 11/08/20 04/08/22 topiramate 50 mg tablet 50 mg PO BEDTIME 11/08/20 04/08/22 verapamil 120 mg tablet,extended 120 mg PO DAILY 11/08/20 04/08/22 release topiramate 25 mg tablet 25 mg PO BID 10/16/21 04/08/22 ketorolac 0.5 % eye drops 0 drp ophthalmic (eye) 04/08/22 04/08/22 montelukast 10 mg tablet 10 mg PO DAILY 04/08/22 04/08/22 pantoprazole 20 mg tablet,delayed 20 mg PO DAILY 04/08/22 04/08/22 release Previous Rx's Medication Instructions Recorded nystatin 100,000 unit/gram topical 1 appl topical BID #60 grams 03/27/21 powder polyethylene glycol 3350 17 17 g PO BID PRN constipation #238 03/27/21 gram/dose oral powder (Miralax) grams alirocumab 75 mg/mL subcutaneous 75 mg subcut Q2W #2 mL 04/08/22 pen injector (Praluent Pen) <JARED Fernandez - Last Filed: 05/07/22 19:44> Allergies/Adverse Reactions: Allergies Allergy/AdvReac Type Severity Reaction Status Date / Time prochlorperazine Allergy Severe ANXIETY Verified 05/07/22 19:35 [From COMPAZINE] codeine [CODEINE] Allergy Unknown HALLUCINATI Verified 05/07/22 19:35 ONS droperidol [From INAPSINE] Allergy Unknown TACHYCARDIA Verified 05/07/22 19:35 Sulfa (Sulfonamide Allergy Unknown HIVES Verified 05/07/22 19:35 Antibiotics) [SULFA (SULFONAMIDE ANTIBIOTICS)] sulfacetamide Allergy Unknown unk Verified 05/07/22 19:35 oxycodone [From PERCODAN] AdvReac Unknown NAUSEA & Verified 05/07/22 19:35 VOMITING, HALLUCINATIONS Compazine Allergy Unknown unk Uncoded 05/07/22 19:35 From REGLAN Allergy Unknown UNKNOWN Uncoded 05/07/22 19:35 Percodan Allergy Unknown unk Uncoded 05/07/22 19:35 Statins AdvReac Unknown muscle Uncoded 05/07/22 19:35 aches <JARED Fernandez - Last Filed: 05/07/22 19:44> Review of Systems Review of Systems Review of systems: General: Patient denies any fever chills recent illness or falls Musculoskeletal: Denies back pain or body aches or other injuries HEENT: denies headache, runny nose, ear pain Respiratory: denies shortness of breath, cough Cardiovascular: no chest pain or palpitations : denies dysuria, frequency Abdomen: Chronic rectal bleeding no nausea vomiting right-sided abdominal pain Extremities: no swelling, no pain Skin: no diaphoresis <Juve Clancy DO - Last Filed: 05/07/22 22:03> Yes all other systems are reviewed and are negative <Juve Clancy DO - Last Filed: 05/07/22 22:03> PMF Past Medical History Medical History: Medical History Essential hypertension PAC (premature atrial contraction) <JARED Fernandez - Last Filed: 05/07/22 19:44> Surgical History: Surgical History History of cholecystectomy History of hysterectomy <JARED Fernandez - Last Filed: 05/07/22 19:44> Family History Family History: Family History Father CVD (cardiovascular disease) Mother No problems noted. <JARED Fernandez Last Filed: 05/07/22 19:44> Social History Social History: Social History Alcohol intake: current Alcohol intake frequency: holidays/special occasions only Alcohol type: wine Patient Tobacco Use Status: Never used Tobacco Smoked in Last 30 Days: No Use of substances other than those prescribed or required for medical reasons: No Advance Directives: No Advance Directives Information Provided: No <JARED Fernandez Last Filed: 05/07/22 19:44> Physical Exam ED Vital Signs: Vital Signs - 24 hr 05/07/22 19:35 05/07/22 20:55 Temperature 97.0 F Pulse Rate 101 H 82 Respiratory Rate 16 18 Blood Pressure 156/89 H 121/60 Pulse Oximetry 98 98 Oxygen Delivery Method Room Air Room Air BMI result Body Mass Index 36.6 <JARED Fernandez Last Filed: 05/07/22 19:44> Vital Signs - 24 hr 05/07/22 19:35 05/07/22 20:55 Temperature 97.0 F Pulse Rate 101 H 82 Respiratory Rate 16 18 Blood Pressure 156/89 H 121/60 Pulse Oximetry 98 98 Oxygen Delivery Method Room Air Room Air BMI result Body Mass Index 36.6 <Juve Clancy DO - Last Filed: 05/07/22 22:03> General: Well-appearing well-nourished in no signs of distress HEENT: Normocephalic atraumatic Neck: No signs of JVD, no masses no tenderness or lymphadenopathy Cardiovascular: Regular rate and rhythm Respiratory: Clear to auscultation bilaterally Abdomen: Soft INtermittent not always reproducible abdominal pain no guarding or rebound Extremities: Normal pedal pulses no signs of edema Skin: Dry warm no rashes Back: No tenderness full ROM <Juve Clancy DO - Last Filed: 05/07/22 22:03> Course Course Course Narrative: RME - 67 yo female with history of HLD, LVH, HTN, lichen sclerosis, hemorrhoids, who presents to the ER for evaluation of right sided abdominal pain and rectal bleeding. Has had the pain for a couple months and recently saw [facility] Colorectal specialist who treated her for hemorrhoids. Constipated yesterday and had 2 episodes of large volume bloody BM today and yesterday. She reports feeling like she was going to pass out with her BMs. Plan: labs, EKG, CT abd/pelvis <JARED Fernandez - Last Filed: 05/07/22 19:44> Medical Decision Making Medical Decision Making MDM Narrative: I will give fluids I will hold off on morphine. Patient will be sent for CT and labs. CT and labs are all normal . Patient with known hemorroids nothing surgical. I feel comfortable sendin home. She has no anemia or concerns for admisssion. <Juve Clancy DO - Last Filed: 05/07/22 22:03> Differential Diagnosis Differential Diagnoses: The differential diagnosis associated with the presentation includes <DO Lizzeth Taylor Last Filed: 05/07/22 22:03> Bowel mass, diverticultisi or other surgical issue. <Juve Clancy DO - Last Filed: 05/07/22 22:03> Admission/Observation Consideration of admission/observation: Escalation of care including admission/observation considered <DO Lizzeth Taylor Last Filed: 05/07/22 22:03> Lab Data Result Diagrams: 05/07/22 19:49 05/07/22 19:49 <JARED Fernandez - Last Filed: 05/07/22 19:44> Labs: Lab Results 05/07/22 05/07/22 05/07/22 Range/Units 19:49 19:49 19:49 WBC 8.8 (4.8-10.8) X10*3/uL RBC 5.55 H (4.20-5.50) X10*6/uL Hgb 16.2 H (12.0-16.0) g/dl Hct 49.6 H (37.0-47.0) % MCV 89.4 (80.0-98.0) fL MCH 29.2 (27.0-33.0) pg MCHC 32.7 (31.0-35.0) g/dl RDW 14.5 (11.0-16.0) % Plt Count 289 D (160-400) X10*3/uL MPV 9.9 (9.4-12.3) fL Immature Gran % (Auto) 0.2 (0.0-0.4) % Neut % (Auto) 59.0 (45-73) % Lymph % (Auto) 28.1 (20-40) % Buchanan % (Auto) 9.9 (2-11) % Eos % (Auto) 2.2 (0-4) % Baso % (Auto) 0.6 (0-2) % Lymph # (Auto) 2.5 (1.2-4.9) X10*3/uL Buchanan # (Auto) 0.9 (0.1-1.2) X10*3/uL Eos # (Auto) 0.2 (0.0-0.4) X10*3/uL Baso # (Auto) 0.1 (0.0-0.2) X10*3/uL Abs Immat Gran (auto) 0.02 (0.00-0.03) X10*3/uL Absolute Neuts (auto) 5.2 (2.0-8.3) x10*3/uL Absolute Nucleated RBC 0.000 (0.0-0.012) X10*3/uL Nucleated RBC % (auto) 0.0 (0.0-0.2) /100WBC PT 10.2 (10.0-13.1) SEC INR 0.9 (0.9-1.1) APTT 29.4 (26.0-36.4) SEC Sodium 146 H (135-145) mmol/L Potassium 4.7 (3.3-5.1) mmol/L Chloride 113 H (96-108) mmol/L Carbon Dioxide 28 (22-29) mmol/L Anion Gap 10 L (12-20) BUN 16 (9-16) mg/dL Creatinine 1.46 H (0.5-1.4) mg/dL Estim Creat Clear Calc 44.9 Estimated GFR 36 Random Glucose 68 (60-115) mg/dL Calcium 8.9 (8.4-10.2) mg/dL Magnesium 2.1 (1.6-2.6) mg/dL Total Bilirubin 0.3 (0.0-1.0) mg/dL Direct Bilirubin < 0.2 (0.0-0.5) mg/dL AST 15 (5-31) U/L ALT 17 (0-31) U/L Alkaline Phosphatase 102 (39-117) U/L Total Protein 6.0 L (6.5-8.0) g/dL Albumin 3.7 (3.5-5.0) g/dL <JARED Fernandez - Last Filed: 05/07/22 19:44> Lab Results 05/07/22 05/07/22 05/07/22 Range/Units 19:49 19:49 19:49 WBC 8.8 (4.8-10.8) X10*3/uL RBC 5.55 H (4.20-5.50) X10*6/uL Hgb 16.2 H (12.0-16.0) g/dl Hct 49.6 H (37.0-47.0) % MCV 89.4 (80.0-98.0) fL MCH 29.2 (27.0-33.0) pg MCHC 32.7 (31.0-35.0) g/dl RDW 14.5 (11.0-16.0) % Plt Count 289 D (160-400) X10*3/uL MPV 9.9 (9.4-12.3) fL Immature Gran % (Auto) 0.2 (0.0-0.4) % Neut % (Auto) 59.0 (45-73) % Lymph % (Auto) 28.1 (20-40) % Buchanan % (Auto) 9.9 (2-11) % Eos % (Auto) 2.2 (0-4) % Baso % (Auto) 0.6 (0-2) % Lymph # (Auto) 2.5 (1.2-4.9) X10*3/uL Buchanan # (Auto) 0.9 (0.1-1.2) X10*3/uL Eos # (Auto) 0.2 (0.0-0.4) X10*3/uL Baso # (Auto) 0.1 (0.0-0.2) X10*3/uL Abs Immat Gran (auto) 0.02 (0.00-0.03) X10*3/uL Absolute Neuts (auto) 5.2 (2.0-8.3) x10*3/uL Absolute Nucleated RBC 0.000 (0.0-0.012) X10*3/uL Nucleated RBC % (auto) 0.0 (0.0-0.2) /100WBC PT 10.2 (10.0-13.1) SEC INR 0.9 (0.9-1.1) APTT 29.4 (26.0-36.4) SEC Sodium 146 H (135-145) mmol/L Potassium 4.7 (3.3-5.1) mmol/L Chloride 113 H (96-108) mmol/L Carbon Dioxide 28 (22-29) mmol/L Anion Gap 10 L (12-20) BUN 16 (9-16) mg/dL Creatinine 1.46 H (0.5-1.4) mg/dL Estim Creat Clear Calc 44.9 Estimated GFR 36 Random Glucose 68 (60-115) mg/dL Calcium 8.9 (8.4-10.2) mg/dL Magnesium 2.1 (1.6-2.6) mg/dL Total Bilirubin 0.3 (0.0-1.0) mg/dL Direct Bilirubin < 0.2 (0.0-0.5) mg/dL AST 15 (5-31) U/L ALT 17 (0-31) U/L Alkaline Phosphatase 102 (39-117) U/L Total Protein 6.0 L (6.5-8.0) g/dL Albumin 3.7 (3.5-5.0) g/dL <Juve Clancy DO - Last Filed: 05/07/22 22:03> Medications Administered Discontinued Medications Generic Name Dose Route Start Last Admin Trade Name Freq PRN Reason Stop Dose Admin Iohexol 100 ml 05/07/22 21:15 05/07/22 21:15 Iohexol 350 Mg/Ml 100 Ml Infus..Btl IV 05/07/22 21:16 80 ml ONCE ONE Administration <JARED Fernandez - Last Filed: 05/07/22 19:44> Medications Administered Discontinued Medications Generic Name Dose Route Start Last Admin Trade Name Freq PRN Reason Stop Dose Admin Iohexol 100 ml 05/07/22 21:15 05/07/22 21:15 Iohexol 350 Mg/Ml 100 Ml Infus..Btl IV 05/07/22 21:16 80 ml ONCE ONE Administration <Juve Clancy DO - Last Filed: 05/07/22 22:03> Discharge Plan Discharge Clinical Impression: Hemorrhoids, Abdominal pain <JARED Fernandez - Last Filed: 05/07/22 19:44> Patient Disposition: Home, Self-Care <JARED Fernandez - Last Filed: 05/07/22 19:44> Instructions: Abdominal Pain (ED), Hemorrhoids (ED) <JARED Fernandez - Last Filed: 05/07/22 19:44> Additional Instructions: Your seen today in the emergency department for abdominal pain and bleeding rectally. You had a CT and labs done which were all normal. Please call follow-up with her doctor. <JARED Fernandez - Last Filed: 05/07/22 19:44> Prescriptions: No Action polyethylene glycol 3350 [Miralax] 17 gram/dose powder 17 g PO BID PRN (Reason: constipation) Qty: 238 0RF nystatin 100,000 unit/gram powder 1 appl topical BID Qty: 60 0RF duloxetine 30 mg capsule,delayed release(DR/EC) 60 mg PO DAILY topiramate 50 mg tablet 50 mg PO BEDTIME verapamil 120 mg tablet extended release 120 mg PO DAILY budesonide-formoterol [Symbicort] 160-4.5 mcg/actuation HFA aerosol inhaler inhalation gabapentin 300 mg capsule 600 mg PO BEDTIME topiramate 25 mg tablet 25 mg PO BID pantoprazole 20 mg tablet,delayed release (DR/EC) 20 mg PO DAILY montelukast 10 mg tablet 10 mg PO DAILY ketorolac 0.5 % drops 0 drp ophthalmic (eye) Praluent Pen 75 mg/mL pen injector 75 mg subcut Q2W Qty: 2 5RF Rx Instructions: inject into abdomen, thigh, or upper arm (deltoid muscle); rotate sites <JARED Fernandez - Last Filed: 05/07/22 19:44>
--- NOTE | 2022-05-07 19:41 | ECG_ITS ---
Test Reason : PRE-SYNCOPY Blood Pressure : / mmHG Vent. Rate : 088 BPM Atrial Rate : 088 BPM P-R Int : 118 ms QRS Dur : 076 ms QT Int : 366 ms P-R-T Axes : 048 006 035 degrees QTc Int : 442 ms Normal sinus rhythm Minimal voltage criteria for LVH, may be normal variant ( R in aVL ) Borderline ECG When compared with ECG of 25-AUG-2018 19:11, No significant change was found Referred By: Violetta Hines Electronically Signed By:KARINE RIVERA
[2022-05-07 19:56] LABS: MANUAL DIFF FLAG NO
[2022-05-07 19:57] LABS: Basophils Absolute Auto 0.1 X10*3/uL (0.0-0.2); Basophils Percent Auto 0.6 % (0-2); Eosinophils Absolute Auto 0.2 X10*3/uL (0.0-0.4); Eosinophils Percent Auto 2.2 % (0-4); Hematocrit 49.6 % (37.0-47.0); Hemoglobin 16.2 g/dl (12.0-16.0); Imm Gran Abs Auto 0.02 X10*3/uL (0.00-0.03); Imm Gran Pct Auto 0.2 % (0.0-0.4); Lymphocytes Absolute Auto 2.5 X10*3/uL (1.2-4.9); Lymphocytes Percent Auto 28.1 % (20-40); Mean Corpuscular HGB Conc 32.7 g/dl (31.0-35.0); Mean Corpuscular Hemoglobin 29.2 pg (27.0-33.0); Mean Corpuscular Volume 89.4 fL (80.0-98.0); Mean Platelet Volume 9.9 fL (9.4-12.3); Monocytes Absolute Auto 0.9 X10*3/uL (0.1-1.2); Monocytes Percent Auto 9.9 % (2-11); Neutrophils Absolute Auto 5.2 x10*3/uL (2.0-8.3); Platelet Count 289 X10*3/uL (160-400); Red Blood Count 5.55 X10*6/uL (4.20-5.50); Red Cell Distribution Width 14.5 % (11.0-16.0); White Blood Count 8.8 X10*3/uL (4.8-10.8)
[2022-05-07 20:03] LABS: INTERNATIONAL NORM RATIO 0.9 (0.9-1.1); Prothrombin Time 10.2 SEC (10.0-13.1)
[2022-05-07 20:05] LABS: Partial Thromboplastin Time 29.4 SEC (26.0-36.4)
[2022-05-07 20:29] LABS: Alanine Aminotransferase 17 U/L (0-31); Albumin Level 3.7 g/dL (3.5-5.0); Alkaline Phosphatase 102 U/L (39-117); Anion Gap 10 (12-20); Aspartate Amino Transferase 15 U/L (5-31); Bilirubin Direct < 0.2 mg/dL (0.0-0.5); Bilirubin Total 0.3 mg/dL (0.0-1.0); Blood Urea Nitrogen 16 mg/dL (9-16); Calcium 8.9 mg/dL (8.4-10.2); Carbon Dioxide 28 mmol/L (22-29); Chloride 113 mmol/L (96-108); Creatinine Clr Calc Pharmacy 44.9; Estimated Glomerular Filt Rate 36; Glucose Random 68 mg/dL (60-115); Magnesium 2.1 mg/dL (1.6-2.6); Potassium 4.7 mmol/L (3.3-5.1); Sodium 146 mmol/L (135-145)
[2022-05-07 20:55] VITALS: BP 121/60; PULSE 82; RESP 18; O2SAT 98
--- NOTE | 2022-05-07 21:00 | PC.NURSE ---
Pt A&Ox4, reports tenderness to touch to LUQ. Reports last BM was right before coming in to be seen, states she had 4 episodes of blood in stool. IV line placed.
[2022-05-07] MEDS: iohexoL 350 MG/ML 100 ML INFUS..BTL IV (21:15)
== END 2022-05-07 22:17 | disposition home or self-care (01) ==
PROVIDERS: Physician Assistant; Emergency Provider Student in an Organized Health Care Education/Training Program; PCP Family Medicine
DX: K64.9 Unspecified hemorrhoids (principal); R10.9 Unspecified abdominal pain; K92.2 Gastrointestinal hemorrhage, unspecified; I10 Essential (primary) hypertension; E78.5 Hyperlipidemia, unspecified; Z79.899 Other long term (current) drug therapy
CPT/HCPCS: 36415; 74178; 80048; 80076; 83735; 85025; 85610; 85730; 93005; 99284; 99285; Q9967

== ENCOUNTER 2022-10-09 10:04 | Outpatient (AMB) | payer MEDICARE, SELFPAY ==
--- NOTE | 2022-10-09 10:05 | MHC.OFFVIS ---
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 Accompanied by: Self / Same As Patient Allergies prochlorperazine [From COMPAZINE] Allergy (Severe, Verified 10/09/22 10:09) ANXIETY codeine [CODEINE] Allergy (Unknown, Verified 10/09/22 10:09) HALLUCINATIONS droperidol [From INAPSINE] Allergy (Unknown, Verified 10/09/22 10:09) TACHYCARDIA Sulfa (Sulfonamide Antibiotics) [SULFA (SULFONAMIDE ANTIBIOTICS)] Allergy (Unknown, Verified 10/09/22 10:09) HIVES sulfacetamide Allergy (Unknown, Verified 10/09/22 10:09) unk oxycodone [From PERCODAN] Adverse Reaction (Unknown, Verified 10/09/22 10:09) NAUSEA & VOMITING, HALLUCINATIONS Compazine Allergy (Unknown, Uncoded 10/09/22 10:09) unk From REGLAN Allergy (Unknown, Uncoded 10/09/22 10:09) UNKNOWN Percodan Allergy (Unknown, Uncoded 10/09/22 10:09) unk Statins Adverse Reaction (Unknown, Uncoded 10/09/22 10:09) muscle aches Medication List - Last Reconciled 10/09/22 by Camron Wharton MD alirocumab (Praluent Pen) 75 mg subcut Q2W budesonide-formoterol 160-4.5 mcg/actuation (Symbicort) inhalation duloxetine 60 mg PO DAILY gabapentin 600 mg PO BEDTIME ketorolac 0.5% 0 drps ophthalmic (eye) montelukast 10 mg PO DAILY nystatin 1 appl topical BID pantoprazole 20 mg PO DAILY PRN polyethylene glycol 3350 (Miralax) 17 grams PO BID PRN topiramate 50 mg PO BEDTIME topiramate 25 mg PO BID verapamil ER 120 mg PO DAILY HPI HPI Comments History of Present Illness Details Sade returns for follow-up. In the past, she has been seen for atypical chest pains as well as palpitations at different times. She remains on verapamil in that regard for ectopy. Few months back, she was referred again because of very high lipids. Then Praluent was prescribed. She has taken this in the past but there was some interruption. More recently taking it regularly. We do not have any updated lipids. Continues to have last social issues at home and she states she is no longer with any of her family members. Lots of stress in that regard but this has been ongoing for a while. [facility] Medical History (Updated 05/08/22 @ 00:01 by Carlos Kelly) Essential hypertension PAC (premature atrial contraction) Surgical History (Updated 10/09/22 @ 10:10 by Sherry Holloway) History of cholecystectomy History of hysterectomy Hx of cataract surgery Family History Father CVD (cardiovascular disease) Mother No problems noted. Social History Alcohol intake: current Alcohol intake frequency: holidays/special occasions only Alcohol type: wine Patient Tobacco Use Status: Never used Tobacco Review of Systems Const Denies weakness ENT Denies dizziness Card Denies chest pain, Denies chest pain with activity, Denies syncope, Denies rapid heart rate, Denies pedal edema, Denies edema, Denies leg edema, Denies lightheadedness, Denies palpitations, Denies dyspnea, Denies dyspnea on exertion and Denies orthopnea Resp Denies cough, Denies dyspnea and Denies dyspnea on exertion GI Denies hematochezia and Denies change in stool character Musc Denies abnormal gait, Denies muscle cramps, Denies muscle weakness, Denies numbness, Denies radiating pain into limb and Denies tingling Neuro Denies abnormal gait, Denies dizziness, Denies syncope, Denies numbness, Denies tingling and Denies weakness Endo Denies palpitations Physical Exam Vital Signs: Last Vital Signs Pulse 98 10/09/22 10:06 BP 126/80 10/09/22 10:06 BMI result Body Mass Index 38.9 Const General: comfortable and no acute distress Orientation/consciousness: patient oriented x3 HEENT Other: Unremarkable Head: Yes normal to inspection Neck Neck: Yes normal visual inspection Chest Chest palpation & inspection: normal inspection of the chest Resp Auscultation: clear to auscultation bilaterally Cardio Palpation: normal PMI Heart sounds: S1 normal heart sound present, S2 normal heart sound present, no gallops, no murmurs and no rubs GI Palpation (GI): Soft to palpation Back/Spine/Pelvis Other: unremarkable Skin General skin exam: no rashes or lesions noted Neuro General: patient oriented x3 Extrem General: Yes normal to inspection Psych Mental Status: mental status grossly normal Assessment & Plan Assessment & Plan (1) Hyperlipidemia: Code(s): E78.5 - Hyperlipidemia, unspecified Plan: Last available lipids- LDL is 309 mg/dL. Triglycerides 126 mg/dL. History of 87 mg dL. Not tolerant of statins. Has been on Praluent for few months. We will recheck labs. (2) Essential hypertension: Code(s): I10 - Essential (primary) hypertension Plan: She was on amlodipine but apparently due to migraine headaches, this has been switched to verapamil. Stable. No further changes. (3) PAC (premature atrial contraction): Code(s): I49.1 - Atrial premature depolarization Plan: Holter in the past had shown short runs of supraventricular ectopy but very brief. Already on verapamil that should help. Otherwise, primarily weight loss. Orders: Orders LDL Cholesterol Direct Today E78.2 - Mixed hyperlipidemia Coding Level of Care Code Est Pt Level 3 (11668) Diagnoses Hyperlipidemia E78.5 Essential hypertension I10 PAC (premature atrial contraction) I49.1
[2022-10-09 10:06] VITALS: BP 126/80; PULSE 98; BMI 38.9
== END 2022-10-09 10:25 | disposition home or self-care (01) ==
PROVIDERS: PCP Family Medicine; Referring Provider Family Medicine; Visit Provider Internal Medicine
DX: E78.5 Hyperlipidemia, unspecified (principal); I10 Essential (primary) hypertension; I49.1 Atrial premature depolarization
CPT/HCPCS: 99213

== ENCOUNTER 2022-10-09 10:04 | Outpatient (REF) | payer MEDICARE, SELFPAY ==
[2022-10-09 11:45] LABS: Cholesterol 280 mg/dL; HDL Cholesterol 74 mg/dL; LDL Cholesterol Calculated 185 mg/dl; Triglycerides 107 mg/dL
[2022-10-11 16:09] LABS: LDL Cholesterol Direct 183 mg/dL (<100)
== END 2022-10-09 10:05 | disposition home or self-care (01) ==
LOC: HO.LAB 10:04
PROVIDERS: PCP Family Medicine; Referring Provider Family Medicine; Visit Provider Internal Medicine
DX: I49.1 Atrial premature depolarization (principal); I10 Essential (primary) hypertension; E78.2 Mixed hyperlipidemia
CPT/HCPCS: 36415; 80061; 83721; 99212

== ENCOUNTER 2022-11-19 09:08 | Outpatient (AMB) | payer MEDICARE, SELFPAY ==
--- NOTE | 2022-11-19 09:12 | AM.OFFWIN_ITS ---
Intake Vital Signs 11/19/22 09:23 Height 5 ft 5 in Weight 233 lb BMI 38.8 BP 126/78 Blood Pressure Location Rt brachial Position Sitting Pulse 94 Pulse Source Pulse Oximeter Temp 98.0 F Pulse Oximetry (%) 96 Intake Visit Reasons: EP, chest pain, cold sweat, trouble breathing Intake Note: pt is here for c/o cold sweat, asthma issues, chest congestion, trouble breathing over a week Patient Tobacco Use Status: Never used Tobacco Allergies prochlorperazine [From COMPAZINE] Allergy (Severe, Verified 11/19/22 09:24) ANXIETY codeine [CODEINE] Allergy (Unknown, Verified 11/19/22 09:24) HALLUCINATIONS droperidol [From INAPSINE] Allergy (Unknown, Verified 11/19/22 09:24) TACHYCARDIA Sulfa (Sulfonamide Antibiotics) [SULFA (SULFONAMIDE ANTIBIOTICS)] Allergy (Unknown, Verified 11/19/22 09:24) HIVES sulfacetamide Allergy (Unknown, Verified 11/19/22 09:24) unk oxycodone [From PERCODAN] Adverse Reaction (Unknown, Verified 11/19/22 09:24) NAUSEA & VOMITING, HALLUCINATIONS Compazine Allergy (Unknown, Uncoded 10/09/22 10:09) unk From REGLAN Allergy (Unknown, Uncoded 10/09/22 10:09) UNKNOWN Percodan Allergy (Unknown, Uncoded 10/09/22 10:09) unk Statins Adverse Reaction (Unknown, Uncoded 10/09/22 10:09) muscle aches Do you need a note to return to daycare/school/sports/work: Yes HPI EP, chest pain, cold sweat, trouble breathing HPI Details 67-year-old female patient presents [facility] for a sick visit. She reports a greater than 1 week history of cough, wheezing, shortness of breath, cold sweats, temp to 101. History of asthma and pulmonary fibrosis, followed by pulmonology at [facility]. Has self-treated at home with Mucinex, Robitussin, nebulizer, Tylenol with minimal benefit. Denies chest pain or GI symptoms. [facility] Medical History PAC (premature atrial contraction) Essential hypertension Surgical History Hx of cataract surgery History of cholecystectomy History of hysterectomy Family History Father CVD (cardiovascular disease) Mother No problems noted. Social History Alcohol intake: current Alcohol intake frequency: holidays/special occasions only Alcohol type: wine Patient Tobacco Use Status: Never used Tobacco Review of Systems Const All systems reviewed & are unremarkable except as noted in HPI and below Physical Exam Vital Signs: Last Vital Signs Temp 98.0 F 11/19/22 09:23 Pulse 94 11/19/22 09:23 BP 126/78 11/19/22 09:23 Pulse Ox 96 11/19/22 09:23 BMI result Body Mass Index 38.8 HEENT Head: Yes normal to inspection Ears: hearing grossly normal bilaterally Face and sinus: Yes normal facial exam and Yes sinuses nontender Mouth: Normal oral and palatal mucosa present and moist mucous membranes Throat: Yes posterior oropharynx abnormal (Mild erythema) Neck Neck: Yes no lymphadenopathy Chest Chest palpation & inspection: normal palpation of entire chest wall Resp Effort & Inspection: normal respiratory effort, able to speak in complete sentences and Actively coughing Quality: dry Auscultation: clear to auscultation bilaterally Cardio Jugular venous distension: no JVD Palpation: normal PMI Rate: regular rate Rhythm: regular rhythm Skin General skin exam: no rashes or lesions noted Extrem General: Yes capillary refill normal and Yes no clubbing, cyanosis or edema Psych Appearance: grossly normal Mental Status: mental status grossly normal Speech and movement: Normal speech and movement present Assessment & Plan Assessment & Plan (1) Shortness of breath: Code(s): R06.02 - Shortness of breath Plan: Chest x-ray done in clinic does not appear to have any acute findings. Will await official radiology report. Given persistent symptoms, cough, chest tightness, history of asthma/pulmonary fibrosis and recent intermittent wheezing, I am going to start patient on prednisone and antibiotic. We discussed possible evaluation the emergency department, however patient does not wish to go there. We reviewed at length that if patient's symptoms persist despite treatment, worsen, or new symptoms develop, she should go to the emergency department for evaluation. She verbalizes understanding and agrees to plan. (2) Asthmatic bronchitis with acute exacerbation: Code(s): J45.901 - Unspecified asthma with (acute) exacerbation Qualifiers: Asthma severity: moderate Asthma persistence: persistent Qualified Code(s): J45.41 - Moderate persistent asthma with (acute) exacerbation Orders: Orders XR chest 2V Today R06.02 - Shortness of breath Medications: New prednisone 20 mg PO BID 10 tabs 0RF 5 days J45.41 - Moderate persistent asthma with (acute) exacerbation, R06.02 - Shortness of breath doxycycline hyclate 100 mg PO BID 14 tabs 0RF 7 days J45.41 - Moderate persistent asthma with (acute) exacerbation Coding Level of Care Code Est Pt Level 3 (54709) Diagnoses Shortness of breath R06.02 Moderate persistent asthmatic bronchitis with acute exacerbation J45.41 Asthma severity: moderate Asthma persistence: persistent
[2022-11-19 09:23] VITALS: BP 126/78; PULSE 94; TEMP 36.7; O2SAT 96; BMI 38.8
== END 2022-11-19 10:22 | disposition home or self-care (01) ==
PROVIDERS: PCP Family Medicine; Visit Provider Nurse Practitioner Family
DX: R06.02 Shortness of breath (principal); J45.41 Moderate persistent asthma with (acute) exacerbation
CPT/HCPCS: 99213

== ENCOUNTER 2022-11-19 09:49 | Outpatient (REF) | payer MEDICARE, SELFPAY ==
--- NOTE | ~2022-11-19 | XR_ITS ---
EXAMINATION: XR CHEST CLINICAL INFORMATION: Shortness of breath COMPARISON: 08/25/2018 TECHNIQUE: 2 views of the chest were obtained. FINDINGS: No significant abnormality is noted involving the heart, lungs, mediastinum, bony thorax or soft tissues. XR/XR chest 2V IMPRESSION: Unremarkable examination.
== END 2022-11-19 09:50 | disposition home or self-care (01) ==
LOC: HO.HMGCX 09:49
PROVIDERS: PCP Family Medicine; Visit Provider Nurse Practitioner Family
DX: R06.02 Shortness of breath (principal)
CPT/HCPCS: 71046

== ENCOUNTER 2023-03-06 13:41 | Outpatient (AMB) | payer MEDICARE, SELFPAY ==
--- NOTE | 2023-03-06 14:02 | MHC.OFFWIV ---
Intake Vital Signs 03/06/23 14:07 Height 5 ft 5 in Weight 237 lb BMI 39.4 BP 128/84 Blood Pressure Location Lt brachial Position Sitting Pulse 90 Pulse Source Pulse Oximeter Pulse Oximetry (%) 93 Oxygen Delivery Method Room Air Intake Visit Reasons: EP, burning with urination, urgency Patient Tobacco Use Status: Never used Tobacco Allergies prochlorperazine [From COMPAZINE] Allergy (Severe, Verified 11/19/22 09:24) ANXIETY codeine [CODEINE] Allergy (Unknown, Verified 11/19/22 09:24) HALLUCINATIONS droperidol [From INAPSINE] Allergy (Unknown, Verified 11/19/22 09:24) TACHYCARDIA Sulfa (Sulfonamide Antibiotics) [SULFA (SULFONAMIDE ANTIBIOTICS)] Allergy (Unknown, Verified 11/19/22 09:24) HIVES sulfacetamide Allergy (Unknown, Verified 11/19/22 09:24) unk oxycodone [From PERCODAN] Adverse Reaction (Unknown, Verified 11/19/22 09:24) NAUSEA & VOMITING, HALLUCINATIONS Compazine Allergy (Unknown, Uncoded 10/09/22 10:09) unk From REGLAN Allergy (Unknown, Uncoded 10/09/22 10:09) UNKNOWN Percodan Allergy (Unknown, Uncoded 10/09/22 10:09) unk Statins Adverse Reaction (Unknown, Uncoded 10/09/22 10:09) muscle aches Medication List - Last Reconciled 03/06/23 by Eneida Sánchez MD albuterol sulfate 90 mcg/actuation inhalation alirocumab 150 mg subcut Q2W budesonide-formoterol 160-4.5 mcg/actuation (Symbicort) inhalation doxycycline hyclate 100 mg PO BID 7 days duloxetine 60 mg PO DAILY escitalopram oxalate 10 mg PO DAILY gabapentin mg PO gabapentin 600 mg PO BEDTIME ketorolac 0.5% 0 drps ophthalmic (eye) montelukast 10 mg PO DAILY nystatin 1 appl topical BID pantoprazole 20 mg PO DAILY PRN polyethylene glycol 3350 (Miralax) 17 grams PO BID PRN prednisone 20 mg PO BID 5 days topiramate 50 mg PO BEDTIME topiramate 25 mg PO BID verapamil ER 120 mg PO DAILY HPI EP, burning with urination, urgency HPI Details 68-year-old female came in today to be evaluated for possible UTI Symptoms started 4 days ago and is getting worse Patient is complaining of pain suprapubic and dysuria , no fever mild chills no back pain no nausea vomiting She is taking over the counter is all which is helping Patient is also having itching and burning sensation around labia She has lichen sclerosis and for that she has a cream from her OBGYN which is triamcinolone she is using it without any relief UA shows leuk esterase 3+ I have sent Macrobid for the patient the week I have also sent 2 tablets of Diflucan she is to take 1 now and then 1 after she finishes antibiotic. We will send urine for culture [facility] Medical History PAC (premature atrial contraction) Essential hypertension Surgical History Hx of cataract surgery History of cholecystectomy History of hysterectomy Family History Father CVD (cardiovascular disease) Mother No problems noted. Social History Alcohol intake: current Alcohol intake frequency: holidays/special occasions only Alcohol type: wine Patient Tobacco Use Status: Never used Tobacco Review of Systems Const All systems reviewed & are unremarkable except as noted in HPI and below Physical Exam Vital Signs: Last Vital Signs Pulse 90 03/06/23 14:07 BP 128/84 03/06/23 14:07 Pulse Ox 93 03/06/23 14:07 Oxygen Delivery Method Room Air 03/06/23 14:07 BMI result Body Mass Index 39.4 Const General: no acute distress Orientation/consciousness: patient oriented x3 Eyes General: appearance normal, both eyes and all related structures Resp Effort & Inspection: normal respiratory effort and able to speak in complete sentences Auscultation: clear to auscultation bilaterally Cardio Other: S1 S2 GI Other: Mild suprapubic discomfort Other: Erythematous rash around labia Neuro General: patient oriented x3 Psych Mental Status: mental status grossly normal Results AMB Urinalysis, Automated UA Leukoctes 500 Luz/uL Last Edit by Mckenna Mei CMA on 03/06/23 14:16 UA Nitrite Positive Last Edit by Mckenna Mei CMA on 03/06/23 14:16 UA Urobilinogen 1 mg/dL Last Edit by Mckenna Mei, [facility] on 03/06/23 14:16 UA Protein 30 mg/dL Last Edit by Mckenna Mei, [facility] on 03/06/23 14:16 UA pH 7.0 Last Edit by Mckenna Mei, [facility] on 03/06/23 14:16 UA Blood 0 Kishan/uL Last Edit by Mckenna Mei, [facility] on 03/06/23 14:16 UA Specific [place] 1.015 Last Edit by Mckenna Mei, [facility] on 03/06/23 14:16 UA Ketone Negative Last Edit by Mckenna Mei, [facility] on 03/06/23 14:16 UA Bilirubin 2 mg/dL Last Edit by Mckenna Mei, [facility] on 03/06/23 14:16 UA Glucose 0 mg/dL Last Edit by Mckenna Mei, [facility] on 03/06/23 14:16 Results Reviewed Results Reviewed: Laboratory Last Values Urine pH (Auto) 7.0 03/06/23 14:13 Specific [place] (Auto) 1.015 03/06/23 14:13 Urine Protein (Auto) 30 mg/dL 03/06/23 14:13 Glucose (UA)(Auto) 0 mg/dL 03/06/23 14:13 Urine Ketones (Auto) Negative 03/06/23 14:13 Urine Blood (Auto) 0 Kishan/uL 03/06/23 14:13 Urine Nitrite (Auto) Positive 03/06/23 14:13 Urine Bilirubin (Auto) 2 mg/dL 03/06/23 14:13 Urine Urobilinogen (Auto) 1 mg/dL 03/06/23 14:13 Leukocyte Esterase (Auto) 500 Luz/uL 03/06/23 14:13 Assessment & Plan Assessment & Plan (1) Acute cystitis: Code(s): N30.00 - Acute cystitis without hematuria Qualifiers: Hematuria presence: without hematuria Qualified Code(s): N30.00 - Acute cystitis without hematuria (2) Dysuria: Code(s): R30.0 - Dysuria (3) Vaginal yeast infection: Code(s): B37.31 - Acute candidiasis of vulva and vagina (4) 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 Plan 68-year-old female came in today to be evaluated for possible UTI Symptoms started 4 days ago and is getting worse Patient is complaining of pain suprapubic and dysuria , no fever mild chills no back pain no nausea vomiting She is taking over the counter is all which is helping Patient is also having itching and burning sensation around labia She has lichen sclerosis and for that she has a cream from her OBGYN which is triamcinolone she is using it without any relief UA shows leuk esterase 3+ I have sent Macrobid for the patient the week I have also sent 2 tablets of Diflucan she is to take 1 now and then 1 after she finishes antibiotic. We will send urine for culture Orders: Orders Urine Culture Today R30.0 - Dysuria AMB Urinalysis Automated Today Z13.9 - Encounter for screening, unspecified Medications: New fluconazole 150 mg PO QWEEK 2 tabs 0RF 2 doses nitrofurantoin monohyd/m-cryst 100 mg (Macrobid) must administer with a meal/food 100 mg PO Q12H 14 caps 0RF 7 days Coding Level of Care Code Est Pt Level 4 (48445) Diagnoses Acute cystitis without hematuria N30.00 Hematuria presence: without hematuria Dysuria R30.0 Vaginal yeast infection B37.31 Lichen sclerosus of vulva N90.4
[2023-03-06 14:07] VITALS: BP 128/84; PULSE 90; O2SAT 93; BMI 39.4
== END 2023-03-06 15:07 | disposition home or self-care (01) ==
PROVIDERS: PCP Family Medicine; Visit Provider Internal Medicine
DX: N30.00 Acute cystitis without hematuria (principal); R30.0 Dysuria; B37.31 Acute candidiasis of vulva and vagina; N90.4 Leukoplakia of vulva
CPT/HCPCS: 81003; 99214

== ENCOUNTER 2023-03-06 15:56 | Outpatient (REF) | payer MEDICARE, SELFPAY | END 2023-03-06 15:57 | disposition home or self-care (01) | LOC: HO.LNP 15:56 | PROVIDERS: Visit Provider Internal Medicine | DX: R30.0 Dysuria (principal) | CPT/HCPCS: 87086 ==

== ENCOUNTER 2023-06-30 15:22 | Outpatient (AMB) | payer MEDICARE, SELFPAY ==
[2023-06-30 15:27] VITALS: BP 122/68; PULSE 94; O2SAT 98; BMI 39.4
--- NOTE | 2023-06-30 15:27 | MHC.OFFVIS ---
Vital Signs 06/30/23 15:27 Height 5 ft 5 in Weight 237 lb BMI 39.4 BP 122/68 Blood Pressure Location Lt brachial Position Sitting Pulse 94 Pulse Source Monitor Pulse Oximetry (%) 98 Oxygen Delivery Method Room Air Intake Visit Reasons: Chest pain Intake Note: pt is doing good is here for ov with ekg Allergies prochlorperazine [From COMPAZINE] Allergy (Severe, Verified 11/19/22 09:24) ANXIETY codeine [CODEINE] Allergy (Unknown, Verified 11/19/22 09:24) HALLUCINATIONS droperidol [From INAPSINE] Allergy (Unknown, Verified 11/19/22 09:24) TACHYCARDIA Sulfa (Sulfonamide Antibiotics) [SULFA (SULFONAMIDE ANTIBIOTICS)] Allergy (Unknown, Verified 11/19/22 09:24) HIVES sulfacetamide Allergy (Unknown, Verified 11/19/22 09:24) unk oxycodone [From PERCODAN] Adverse Reaction (Unknown, Verified 11/19/22 09:24) NAUSEA & VOMITING, HALLUCINATIONS Compazine Allergy (Unknown, Uncoded 10/09/22 10:09) unk From REGLAN Allergy (Unknown, Uncoded 10/09/22 10:09) UNKNOWN Percodan Allergy (Unknown, Uncoded 10/09/22 10:09) unk Statins Adverse Reaction (Unknown, Uncoded 10/09/22 10:09) muscle aches Medication List - Last Reconciled 06/30/23 by Madelaine Jackson NP albuterol sulfate 90 mcg/actuation inhalation budesonide-formoterol 160-4.5 mcg/actuation (Symbicort) inhalation doxycycline hyclate 100 mg PO BID 7 days duloxetine 60 mg PO DAILY escitalopram oxalate 10 mg PO DAILY evolocumab (Repatha SureClick) 140 mg subcut Q2W 90 days fluconazole 150 mg PO QWEEK 2 doses gabapentin mg PO gabapentin 600 mg PO BEDTIME ketorolac 0.5% 0 drps ophthalmic (eye) montelukast 10 mg PO DAILY nitrofurantoin monohyd/m-cryst 100 mg (Macrobid) 100 mg PO Q12H 7 days nystatin 1 appl topical BID pantoprazole 20 mg PO DAILY PRN polyethylene glycol 3350 (Miralax) 17 grams PO BID PRN prednisone 20 mg PO BID 5 days topiramate 50 mg PO BEDTIME topiramate 25 mg PO BID verapamil ER 120 mg PO DAILY HPI Comments Details: 68-year-old female presenting today to discuss chest pains. She has been having a deep pinch - like pain. It was mostly right sided and now she is feeling it on her left side for the last week. She gets jaw pain, let shouler pain and becomes diaphoretic. She gets these symptoms with rest and with acitvity. It wakes her up at night. She does report she had an increase in stress the last year. She denies any palpitations. [facility] Medical History Atypical chest pain PAC (premature atrial contraction) Essential hypertension Surgical History Hx of cataract surgery History of cholecystectomy History of hysterectomy Family History Father CVD (cardiovascular disease) Mother No problems noted. Social History Alcohol intake: current Alcohol intake frequency: holidays/special occasions only Alcohol type: wine Patient Tobacco Use Status: Never used Tobacco Review of Systems Const Denies weakness ENT Denies dizziness Card Denies chest pain, Denies chest pain with activity, Denies syncope, Denies rapid heart rate, Denies pedal edema, Denies edema, Denies leg edema, Denies lightheadedness, Denies palpitations, Denies dyspnea, Denies dyspnea on exertion and Denies orthopnea Resp Denies cough, Denies dyspnea and Denies dyspnea on exertion GI Denies hematochezia and Denies change in stool character Musc Denies abnormal gait, Denies muscle cramps, Denies muscle weakness, Denies numbness, Denies radiating pain into limb and Denies tingling Neuro Denies abnormal gait, Denies dizziness, Denies syncope, Denies numbness, Denies tingling and Denies weakness Endo Denies palpitations Physical Exam Vital Signs: Last Vital Signs Pulse 94 06/30/23 15:27 BP 122/68 06/30/23 15:27 Pulse Ox 98 06/30/23 15:27 Oxygen Delivery Method Room Air 06/30/23 15:27 BMI result Body Mass Index 39.4 Const General: healthy appearing and no acute distress Orientation/consciousness: patient oriented x3 HEENT Head: Yes normal to inspection Eyes General: appearance normal, both eyes and all related structures Neck Neck: Yes normal visual inspection Chest Chest palpation & inspection: normal inspection of the chest Resp Effort & Inspection: normal respiratory effort Auscultation: clear to auscultation bilaterally Cardio Jugular venous distension: no JVD Palpation: normal PMI Rate: regular rate Rhythm: regular rhythm Heart sounds: S1 normal heart sound present, S2 normal heart sound present, no click, no gallops, no murmurs and no rubs GI Inspection: Yes normal to inspection Palpation (GI): Soft to palpation Skin General skin exam: no rashes or lesions noted Neuro General: patient oriented x3 Extrem General: Yes normal to inspection Psych Appearance: grossly normal Office Procedures EKG Details: EKG today. Normal Sinus Rhythm. rate 94 bpm. QRS 74ms. QTc 452ms. [id number], Complete Assessment & Plan Assessment & Plan (1) Precordial chest pain: Code(s): R07.2 - Precordial pain Category: Medical Plan: Atypical chest pains but with concerning symptoms. History of hyperlipidemia, LVH, and obesity as risk factors stress test would be advised to assess for ischemia. (2) Essential hypertension: Code(s): I10 - Essential (primary) hypertension Category: Medical Plan: Blodo pressure within range today. On Verapamil 120mg daily, Orders: Orders CA echo transthoracic complete 06/30/23 I51.7 - Cardiomegaly CA stress test 06/30/23 R07.2 - Precordial pain NM cardiolite stress test 06/30/23 R07.2 - Precordial pain Coding Level of Care Code Est Pt Level 4 (88494) Diagnoses Precordial chest pain R07.2 Essential hypertension I10 CPT Codes EKG - CPT: 98059-[id number], Complete ([id number])
== END 2023-06-30 16:05 | disposition home or self-care (01) ==
PROVIDERS: PCP Family Medicine; Visit Provider Nurse Practitioner
DX: R07.2 Precordial pain (principal); I10 Essential (primary) hypertension
CPT/HCPCS: 93010; 99214

== ENCOUNTER → 2023-06-30 15:22 | Outpatient (BNVA) | payer MEDICARE, SELFPAY | PROVIDERS: PCP Family Medicine; Visit Provider Nurse Practitioner | DX: R07.2 Precordial pain (principal); I10 Essential (primary) hypertension | CPT/HCPCS: 93005; 99212 ==

== ENCOUNTER → 2023-08-03 07:57 | Outpatient (REF) | payer MEDICARE, SELFPAY ==
--- NOTE | ~2023-08-03 | NM_ITS ---
Exercise Myocardial perfusion study Indication: Precordial chest pain to evaluate for myocardial ischemia Technique: The patient was brought in for an exercise perfusion study on 08/03/2023. Patient performed exercise as per Renny protocol and was injected 35 mCi of sestamibi was given intravenously one target HR was achieved. Images were obtained using the SPECT gamma camera interlaced with the gating device. Images were obtained in supine position. Resting perfusion study was performed on 08/05/2023. Patient was administered 35 mCi of sestamibi intravenously at rest. Images were then obtained in supine position. Imaging was obtained with and without CT attenuation. Total DLP 117 mGy-cm. Images were processed with the software and compared side to side in short axis, horizontal long axis and vertical long axis views. Findings: The stress perfusion study showed non attenuated images show minimal thinning of fall very small area of the apex of the LV myocardium. Attenuation corrected images show mildly reduced uptake in the apex of the LV myocardium. Remainder of the LV myocardium is normally perfused. There is suggestion of left ventricle hypertrophy. The gated study shows normal LV systolic function with calculated LVEF of 77%. LV cavity is normal in size. The gated study shows normal in wall thickening and contraction of all segments. There is normal systolic transient ischemic dilation. Resting study shows no change in perfusion pattern compared to stress perfusion study. Gating at rest reveals normal systolic wall motion with ejection fraction at 56%. The findings are consistent with normal myocardial perfusion. NM/NM cardiolite stress test Impression: 1. Normal myocardial perfusion 2. Gated LVEF is greater than 70% 3. Transient ischemic dilatation not present Stress EKG is positive for ischemia
--- NOTE | 2023-08-03 07:59 | CA_ITS ---
Transthoracic Echocardiogram Patient (Last, First, Middle): Sade Shell L Gender: Female Date of : 1955 Age: 68 Procedure Date: 08/03/2023 Procedure Type: Transthoracic Echocardiogram Location: OP Height: 165.1 cm Weight: 104.78 kg BSA: 2.10 m2 Heart Rate: bpm BP: 124 / 78 mmHg Garbage Truck Helper: CASSI Referring MD: Madelaine Jackson NP Automatic Operator: Andrei Garcia MD Symptoms: I51.7 - Cardiomegaly Study Quality: Adequate ECG Rhythm: Sinus Conclusions: - Essentially normal study Findings Left Ventricle Normal left ventricular size, thickness, and systolic function. The visually estimated ejection fraction is between 60-65%. Spectral Doppler is indicative of a normal filling pattern. Peak GLS is -17.4%, borderline low. Right Ventricle Normal right ventricular cavity size and systolic function. Atria Both atria are normal in size. There is lipomatous hypertrophy of the interatrial septum. There is no evidence of interatrial shunt. Aortic Valve Normal aortic valve structure and function. There is no aortic valve stenosis. There is no aortic valve regurgitation. Mitral Valve Normal mitral valve structure and function. There is trace mitral valve regurgitation. There is no mitral valve stenosis. Pulmonic Valve The pulmonic valve is likely normal. There is trace pulmonic valve regurgitation. Tricuspid Valve Normal tricuspid valve structure. There is trace tricuspid valve regurgitation. The right ventricular systolic pressure is normal. The right ventricular systolic pressure is 30 mmHg. Normal right atrial pressure. There is no evidence of pulmonary hypertension. Great Vessels All visible segments of the aorta are normal in size. The pulmonary artery was not well visualized. Venous The inferior vena cava is normal in size and collapses greater than 50% with inspiration. Pericardium/Pleural There is no evidence of pericardial effusion. Measurements 2D Linear Measurements IVSd: 1.00 0.6-0.9/0.6-1.0 cm LVIDd: 3.87 3.9-5.3/4.2-5.9 cm LVIDd Index: 1.84 2.4-3.2/2.2-3.1 cm/m2 LVIDs: 2.39 2.0-3.6 cm LVPWd: 0.93 0.7-1.1 cm LA Diam: 3.00 2.7-3.8/3.0-4.0 cm LAIDs Index: 1.43 1.5-2.3 cm/m2 LV Mass: 142.74 67-162/88-224 g LV Mass Index: 67.97 43-95/49-115 g/m2 LVOT Diam: 2.20 3.0+(-)1.3 cm 2D Systolic Function EF 4C: 60.80 >55% EF 2C: 61.90 >55% EF BiP: 61.80 >55% Mitral Valve MV Pk E: 0.95 MV PK A: 0.67 MV Decel Time: 161.00 E/A: 1.40 E'Lateral: 8.70 E'Medial: 7.40 E/E' Med: 12.90 E/E' Lat: 10.90 PHT: 47.00 MVA PHT: 4.68 Decel [place]: 5.90 Aortic Valve AoV Pk Ton: 1.16 AoV Mn Ton: 0.84 AoV VTI: 0.28 AoV Pk Grad: 5.00 Aov Mn Grad: 3.00 NOHEMI Cont.VTI: 2.58 LVOT LVOT Pk Ton: 0.96 LVOT Mn Ton: 0.59 LVOT VTI: 0.19 LVOT Pk Grad: 4.00 LVOT Mn Grad: 2.00 LVOT Diam: 2.20 LVOT Area: 3.80 Diastolic Function MV Pk E: 0.95 MV Pk A: 0.67 E/A: 1.40 E'Medial: 7.40 E/E' Med: 12.90 E' Laterial: 8.70 E/E' Lat: 10.90 Right Ventricle TAPSE (mm): 19.10 TVS' Ton: 12.40 Tricuspid Valve TR Pk Ton: 2.59 TR Pk Grad: 27.00 RA Press: 3.00 RVSP: 30.00 Great Vessels Aorta Sinus of Valsalva: 3.51 2.0-3.5 cm Ao Asc: 3.40 2.1-3.4 cm Ao Arch: 2.90 Updated in Other Vendor System with Status of Final Andrei Garcia MD electronically signed on 08/03/2023 9:31:35 AM with status of Final
--- NOTE | 2023-08-03 07:59 | CA_ITS ---
Acquisition Time: 2023-08-03 09:03:16 Total Exercise Time: 00:06:15 Test Indications: CP, PAC'S Medications: SEE H Protocol: KENROY Max HR: 157 BPM 101% of Pred: 154 BPM Max BP: 148/074 mmHG Max Work Load: 7.3 METS Exercise stress test exercise 6 min 15 sec of Kenroy protocol 100% MPHR, with mild to moderate SOB, 5/10 pinch like,; non-limiting, with isolated PVC, with normotensive response to exercise, without EKG changes. Nuclear images pending. Chest pain and breathing returned to baseline. Test reviewed with Dr. Garcia Referred By: Madelaine Jackson Overread By: Madelaine Jackson
== END ==
LOC: HO.CARD 07:57
PROVIDERS: PCP Family Medicine; Visit Provider Nurse Practitioner
DX: R07.2 Precordial pain (principal); I51.7 Cardiomegaly
CPT/HCPCS: 78452; 93017; 93306; 93356; A9500

== ENCOUNTER → 2023-08-03 07:59 | Outpatient (BNV) | payer MEDICARE, SELFPAY | PROVIDERS: PCP Family Medicine; Visit Provider Internal Medicine Cardiovascular Disease | DX: I51.7 Cardiomegaly (principal) | CPT/HCPCS: 78452; 93016; 93018; 93320; 93325; 93350; 93356 ==

== ENCOUNTER 2023-08-12 15:49 | Emergency (ER) | payer OTHER, MEDICARE, SELFPAY ==
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
[2023-08-12 15:55] VITALS: BP 124/95; PULSE 116; O2SAT 97
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
[2023-08-12 16:29] VITALS: BP 134/78; PULSE 89; RESP 16; TEMP 36.8; O2SAT 96; BMI 38.3
[2023-08-12 18:00] VITALS: BP 157/91; PULSE 93; TEMP 36.4; O2SAT 96
[2023-08-12 20:10] VITALS: BP 123/69; PULSE 73; RESP 16; TEMP 36.1; O2SAT 97
[2023-08-12] MEDS: Cyclobenzaprine HCl 10 MG TABLET PO (20:44)
[2023-08-12] MEDS: Ketorolac Tromethamine 30 MG/ML VIAL IM (20:45)
[2023-08-12 21:54] VITALS: BP 108/49; PULSE 84; RESP 16; TEMP 36.6; O2SAT 97
--- NOTE | 2023-08-12 22:10 | MHC.EDTECH ---
PATIENT HAD A CHICKEN SANDWICH ,[employer] AND [employer] FOR SNACK .
[2023-08-12 23:17] LABS: Appearance Urine Cloudy; Color Urine Dark Yellow; Glucose Urine UA Negative (Negative); Leukocyte Esterase Urine Small (1+) (Negative); Nitrite Urine Negative (Negative); Specific Gravity - Urine >= 1.030 (1.005-1.025); UMIC TRIGGER UACC YES; Urine Blood Negative (Negative); Urine Ketones Trace mg/dL (Negative); Urine Protein Trace mg/dL (Neg-Trace)
[2023-08-12 23:29] LABS: Bacteria Urine 4+ (None Seen); RBC Urine 0-2 /HPF (0-2); UACC Culture Trigger YES; WBC Urine >50 /HPF (0-5)
[2023-08-13 01:56] VITALS: BP 102/61; PULSE 75; RESP 16; TEMP 36.2; O2SAT 97
[2023-08-13 03:50] VITALS: BP 109/47; PULSE 66; RESP 16; TEMP 36.2; O2SAT 97
== END 2023-08-13 06:02 | disposition home or self-care (01) ==
PROVIDERS: Registered Nurse Emergency; Emergency Provider Internal Medicine
DX: M54.9 Dorsalgia, unspecified (principal); N39.0 Urinary tract infection, site not specified; M54.16 Radiculopathy, lumbar region; Z04.1 Encounter for examination and observation following transport accident; M62.830 Muscle spasm of back; I10 Essential (primary) hypertension
CPT/HCPCS: 72072; 72100; 73010; 81001; 87086; 96372; 99283; 99284; J1885

== ENCOUNTER 2023-08-25 14:25 | Outpatient (AMB) | payer MEDICARE, SELFPAY ==
[2023-08-25 14:33] VITALS: BP 128/68; PULSE 98; BMI 38.2
--- NOTE | 2023-08-25 14:33 | MHC.OFFVIS ---
Vital Signs 08/25/23 14:33 Height 5 ft 5 in Weight 229 lb 4.492 oz BMI 38.2 BP 128/68 Blood Pressure Location Lt brachial Position Sitting Pulse 98 Pulse Source Pulse Oximeter Intake Visit Reasons: fu echo/stress Allergies prochlorperazine [From COMPAZINE] Allergy (Severe, Verified 08/12/23 16:31) ANXIETY codeine [CODEINE] Allergy (Unknown, Verified 08/12/23 16:31) HALLUCINATIONS droperidol [From INAPSINE] Allergy (Unknown, Verified 08/12/23 16:31) TACHYCARDIA Sulfa (Sulfonamide Antibiotics) [SULFA (SULFONAMIDE ANTIBIOTICS)] Allergy (Unknown, Verified 08/12/23 16:31) HIVES sulfacetamide Allergy (Unknown, Verified 08/12/23 16:31) unk oxycodone [From PERCODAN] Adverse Reaction (Unknown, Verified 08/12/23 16:31) NAUSEA & VOMITING, HALLUCINATIONS Compazine Allergy (Unknown, Uncoded 08/12/23 16:31) unk From REGLAN Allergy (Unknown, Uncoded 08/12/23 16:31) UNKNOWN Percodan Allergy (Unknown, Uncoded 08/12/23 16:31) unk Statins Adverse Reaction (Unknown, Uncoded 08/12/23 16:31) muscle aches HPI Comments Details: 68-year-old female presenting today to discuss chest pains and results. She has been having a deep pinch - like pain. It was mostly right sided . She gets jaw pain, let shoulder pain and becomes diaphoretic. She gets these symptoms with rest and with activity. It wakes her up at night. [facility]LY [facility] Medical History Atypical chest pain PAC (premature atrial contraction) Essential hypertension Surgical History Hx of cataract surgery History of cholecystectomy History of hysterectomy Family History Father CVD (cardiovascular disease) Mother No problems noted. Social History Alcohol intake: current Alcohol intake frequency: holidays/special occasions only Alcohol type: wine Patient Tobacco Use Status: Never used Tobacco Review of Systems Const Denies weakness ENT Denies dizziness Card Denies chest pain, Denies chest pain with activity, Denies syncope, Denies rapid heart rate, Denies pedal edema, Denies edema, Denies leg edema, Denies lightheadedness, Denies palpitations, Denies dyspnea, Denies dyspnea on exertion and Denies orthopnea Resp Denies cough, Denies dyspnea and Denies dyspnea on exertion GI Denies hematochezia and Denies change in stool character Musc Denies abnormal gait, Denies muscle cramps, Denies muscle weakness, Denies numbness, Denies radiating pain into limb and Denies tingling Neuro Denies abnormal gait, Denies dizziness, Denies syncope, Denies numbness, Denies tingling and Denies weakness Endo Denies palpitations Physical Exam Vital Signs: Last Vital Signs Pulse 98 08/25/23 14:33 BP 128/68 08/25/23 14:33 BMI result Body Mass Index 38.2 Const General: healthy appearing and no acute distress Orientation/consciousness: patient oriented x3 HEENT Head: Yes normal to inspection Eyes General: appearance normal, both eyes and all related structures Neck Neck: Yes normal visual inspection Chest Chest palpation & inspection: normal inspection of the chest Resp Effort & Inspection: normal respiratory effort Auscultation: clear to auscultation bilaterally Cardio Jugular venous distension: no JVD Palpation: normal PMI Rate: regular rate Rhythm: regular rhythm Heart sounds: S1 normal heart sound present, S2 normal heart sound present, no click, no gallops, no murmurs and no rubs GI Inspection: Yes normal to inspection Palpation (GI): Soft to palpation Skin General skin exam: no rashes or lesions noted Neuro General: patient oriented x3 Extrem General: Yes normal to inspection Psych Appearance: grossly normal Results Reviewed Results Reviewed: NM/NM cardiolite stress test Impression: 1. Normal myocardial perfusion 2. Gated LVEF is greater than 70% 3. Transient ischemic dilatation not present Conclusions: - Essentially normal study Assessment & Plan Assessment & Plan (1) Precordial chest pain: Code(s): R07.2 - Precordial pain Category: Medical Plan: Nuclear imaging shows normal cardiology perfusion. Echo was essentially a normal study. Will order holter to assess for arrhythmias. Follow with Dr. Wharton after. (2) Hyperlipidemia: Code(s): E78.5 - Hyperlipidemia, unspecified Category: Medical Plan: Will recheck lipid panel Orders: Orders ECG 3 day holter monitor 08/25/23 R07.2 - Precordial pain Basic Metabolic Panel 08/25/23 E78.5 - Hyperlipidemia, unspecified Lipid Panel 08/25/23 E78.5 - Hyperlipidemia, unspecified Coding Level of Care Code Est Pt Level 3 (29713) Diagnoses Precordial chest pain R07.2 Hyperlipidemia E78.5
== END 2023-08-25 15:37 | disposition home or self-care (01) ==
PROVIDERS: Visit Provider Nurse Practitioner
DX: R07.2 Precordial pain (principal); E78.5 Hyperlipidemia, unspecified
CPT/HCPCS: 99213

== ENCOUNTER → 2023-08-25 14:25 | Outpatient (BNVA) | payer MEDICARE, SELFPAY | PROVIDERS: Visit Provider Nurse Practitioner | DX: R07.2 Precordial pain (principal); E78.5 Hyperlipidemia, unspecified | CPT/HCPCS: 99212 ==

== ENCOUNTER → 2023-09-02 12:43 | Outpatient (REF) | payer MEDICARE, SELFPAY ==
--- NOTE | 2023-09-02 12:48 | HM_ITS ---
* Total monitoring time 3 days. * Underlying rhythm is sinus with an average rate of 88/Min. About 20% of the time, rate > 100/Min. * Rare supraventricular ectopy. * Rare ventricular ectopy. * No significant pauses or AV blocks. * Patient markers used a 3 times in association with sinus rhythm. * Symptoms in diary including 'wierd', ' pinch upper chest', correlates with sinus rhythm and mild sinus tachycardia. MTDD
== END ==
LOC: HO.CARD 12:43
PROVIDERS: PCP Family Medicine; Visit Provider Nurse Practitioner
DX: R07.2 Precordial pain (principal)
CPT/HCPCS: 93242

== ENCOUNTER → 2023-09-02 12:48 | Outpatient (BNV) | payer MEDICARE, SELFPAY | PROVIDERS: PCP Family Medicine; Visit Provider Internal Medicine | DX: R00.0 Tachycardia, unspecified (principal) | CPT/HCPCS: 93244 ==

== ENCOUNTER 2023-10-08 16:14 | Emergency (ER) | payer MEDICARE, SELFPAY ==
--- NOTE | ~2023-10-08 | CT_ITS ---
EXAMINATION: CT ANGIOGRAM HEAD CT ANGIOGRAM NECK CLINICAL INFORMATION: posterior headache COMPARISON: CTA 09/10/2020 and 09/23/2015 TECHNIQUE: Test bolus sequences followed by intravenous administration 70 mL of Omnipaque 350. Helical imaging was performed in the axial plane from the aortic arch to the skull vertex. Delayed postcontrast imaging of the head was also performed. The data was processed at the certified cytotechnologist's workstation for generation of MIP sequences. Angled MIPs and volume rendered reformatted images were also generated at an offline 3D workstation. Stenoses are assessed in accordance with Aj et al. Quantification of Carotid Stenosis on CT Angiography. AJR 2006. 27(1):13-19. This CT examination was performed using dose optimization techniques as appropriate, variously including the following: *Automated exposure control *Adjustment of mA and/or kV according to patient size (this includes techniques or standardized protocols for targeted exams where dose is matched to indication/reason for exam; i.e. extremities or head) *Use of iterative reconstruction technique DLP: 2344 mGy-cm FINDINGS: CT HEAD: The ventricles and sulci are normal in size and configuration without significant volume loss or hydrocephalus. Small cavum septum pellucidum.. No territorial loss of moreno-white differentiation. No acute intracranial hemorrhage or extra-axial fluid collection. There is an enhancing partially calcified extra-axial lesion along the left zabrina clinoid ligament projecting into the left prepontine cistern and encroaching upon the ventral surface of the left gordon, highly suspicious for a meningioma, not substantially changed in appearance compared to prior CTA from 09/10/2020. No pathologic intra-axial enhancement or regional oligemia. Lens replacements. Paranasal sinuses and mastoid air cells are well aerated. Osseous structures are intact. CTA HEAD: No hemodynamically significant stenosis or occlusion in the anterior or posterior circulation. Azygos HÉCTOR. Trace patchy calcific plaque along the carotid siphons without stenosis. No aneurysms and no high flow vascular malformations. Timing of the contrast bolus allows assessment of the major dural venous sinuses, which all opacify normally CTA NECK: Two vessel branching pattern of the arch with left common carotid artery arising from the brachiocephalic trunk. Origins of the great vessels are widely patent. The common carotid arteries are widely patent. The carotid bifurcations and bilateral internal carotid arteries are widely patent. Retropharyngeal course of the distal left common carotid throughout the mid left internal carotid arteries. The left vertebral artery is dominant. The vertebral artery ostia are widely patent. Both vertebral arteries are widely patent throughout their extracranial cervical course. CT NECK: Bilateral torus mandibulari. Interbody fusion hardware at C5-C6. Multilevel cervical spondylosis. 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 CT/CT angio head neck IMPRESSION: 1. No acute intracranial findings. 2. Enhancing partially calcified extra-axial lesion along the left petroclinoid ligament projecting into the left prepontine cistern and encroaching upon the ventral surface of the left gordon, suspicious for a meningioma, not substantially changed in appearance compared to prior CTA from 09/10/2020. Recommend further characterization with contrast-enhanced MRI of the brain. 3. No acute arterial occlusion or hemodynamically significant stenosis within the head or neck.
[2023-10-08 16:30] VITALS: BP 152/89; PULSE 88; RESP 16; TEMP 36.6; O2SAT 96; BMI 38.0
--- NOTE | 2023-10-08 16:38 | ECG_ITS ---
Test Reason : dizziness Blood Pressure : / mmHG Vent. Rate : 071 BPM Atrial Rate : 071 BPM P-R Int : 114 ms QRS Dur : 078 ms QT Int : 406 ms P-R-T Axes : 048 007 030 degrees QTc Int : 441 ms Normal sinus rhythm Minimal voltage criteria for LVH, may be normal variant ( R in aVL ) Borderline ECG When compared with ECG of 07-MAY-2022 19:43, No significant change was found Referred By: Pat Sanches Electronically Signed By:MELITON SIM MD
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
[2023-10-08 17:36] LABS: MANUAL DIFF FLAG NO
[2023-10-08 17:53] LABS: Alanine Aminotransferase 21 U/L (0-31); Albumin Level 3.3 g/dL (3.5-5.0); Alkaline Phosphatase 96 U/L (39-117); Anion Gap 10 (12-20); Aspartate Amino Transferase 19 U/L (5-31); Bilirubin Total 0.3 mg/dL (0.0-1.0); Blood Urea Nitrogen 17 mg/dL (9-16); Calcium 8.6 mg/dL (8.4-10.2); Carbon Dioxide 26 mmol/L (22-29); Chloride 112 mmol/L (96-108); Estimated Glomerular Filt Rate 47; Glucose Random 97 mg/dL (60-115); Magnesium 2.2 mg/dL (1.6-2.6); Sodium 144 mmol/L (135-145); Total Protein 5.7 g/dL (6.5-8.0)
[2023-10-08 17:56] LABS: Basophils Percent Auto 0.6 % (0-2); Eosinophils Absolute Auto 0.2 X10*3/uL (0.0-0.4); Eosinophils Percent Auto 2.1 % (0-4); Hematocrit 46.4 % (37.0-47.0); Hemoglobin 15.5 g/dl (12.0-16.0); Imm Gran Abs Auto 0.03 X10*3/uL (0.00-0.03); Imm Gran Pct Auto 0.4 % (0.0-0.4); Lymphocytes Absolute Auto 2.8 X10*3/uL (1.2-4.9); Lymphocytes Percent Auto 38.5 % (20-40); Mean Corpuscular HGB Conc 33.4 g/dl (31.0-35.0); Mean Corpuscular Hemoglobin 30.4 pg (27.0-33.0); Mean Platelet Volume 10.2 fL (9.4-12.3); Monocytes Absolute Auto 0.8 X10*3/uL (0.1-1.2); Monocytes Percent Auto 11.6 % (2-11); Neutrophils Absolute Auto 3.3 x10*3/uL (2.0-8.3); Neutrophils Percent Auto 46.8 % (45-73); Platelet Count 203 X10*3/uL (160-400); Red Cell Distribution Width 13.8 % (11.0-16.0); White Blood Count 7.1 X10*3/uL (4.8-10.8)
[2023-10-08 17:59] LABS: INTERNATIONAL NORM RATIO 0.8 (0.9-1.1)
[2023-10-08 18:03] LABS: Troponin-I High Sensitivity < 2.7 ng/L (<3.5-17.0)
[2023-10-08 18:15] LABS: Influenza A PCR NEGATIVE (Negative); Influenza B PCR NEGATIVE (Negative); Resp Syncy Virus RNA Qual PCR NEGATIVE (Negative); SARS COV2 PCR INHOUSE NEGATIVE (Negative)
[2023-10-08] MEDS: Lidocaine 4 % Patch ADH..PATCH 1 PATCH TRANSDERMA (19:00)
[2023-10-08] MEDS: iohexoL 350 MG/ML 100 ML INFUS..BTL IV (19:14)
[2023-10-08 19:28] LABS: Erythrocyte Sedimentation Rate 2 MM/HR (0-20)
[2023-10-08 19:58] LABS: Appearance Urine Clear; Color Urine Yellow; Glucose Urine UA Negative (Negative); Leukocyte Esterase Urine Small (1+) (Negative); Nitrite Urine Negative (Negative); Specific Gravity - Urine >= 1.030 (1.005-1.025); UMIC TRIGGER UACC YES; Urine Blood Negative (Negative); Urine Ketones Negative (Negative); Urine Protein Negative (Neg-Trace)
[2023-10-08 20:00] VITALS: BP 130/68; PULSE 72; RESP 16; TEMP 37; O2SAT 94
[2023-10-08 20:03] LABS: C Reactive Protein 0.32 mg/dL (< or = 0.50)
[2023-10-08 20:17] LABS: Bacteria Urine Trace (None Seen); Hyaline Casts Urine 0-2 /LPF (0-2); RBC Urine 0-2 /HPF (0-2); UACC Culture Trigger YES; WBC Urine 0-5 /HPF (0-5)
[2023-10-08 21:00] VITALS: BP 136/64; PULSE 75; RESP 16; TEMP 37; O2SAT 95
== END 2023-10-08 21:01 | disposition home or self-care (01) ==
PROVIDERS: Physician Assistant Medical; Emergency Provider Emergency Medicine; PCP Family Medicine
DX: R51.9 Headache, unspecified (principal); M54.2 Cervicalgia; R42 Dizziness and giddiness; Z03.818 Encounter for observation for suspected exposure to other biological agents ruled out; M54.16 Radiculopathy, lumbar region; I49.1 Atrial premature depolarization; I10 Essential (primary) hypertension; E78.5 Hyperlipidemia, unspecified; Z79.899 Other long term (current) drug therapy
CPT/HCPCS: 0241U; 36415; 70496; 70498; 80053; 81001; 83735; 84484; 85025; 85610; 85652; 86140; 87086; 93005; 99285; Q9967

== ENCOUNTER → 2023-10-08 16:38 | Outpatient (BNV) | payer MEDICARE, SELFPAY | PROVIDERS: Emergency Provider Emergency Medicine; PCP Family Medicine; Visit Provider Internal Medicine Cardiovascular Disease | DX: R55 Syncope and collapse (principal) | CPT/HCPCS: 93010 ==

== ENCOUNTER 2023-10-09 12:03 | Emergency (ER) | payer MEDICARE, SELFPAY ==
[2023-10-09 12:43] VITALS: BP 136/83; PULSE 81; RESP 18; TEMP 37.1; O2SAT 93; BMI 38.1
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
--- NOTE | 2023-10-09 12:57 | ECG_ITS ---
Test Reason : RIGHT ARM PAIN Blood Pressure : / mmHG Vent. Rate : 079 BPM Atrial Rate : 079 BPM P-R Int : 120 ms QRS Dur : 078 ms QT Int : 392 ms P-R-T Axes : 044 000 038 degrees QTc Int : 449 ms Normal sinus rhythm Possible Left atrial enlargement Minimal voltage criteria for LVH, may be normal variant ( R in aVL ) Cannot rule out Anterior infarct , age undetermined Abnormal ECG When compared with ECG of 08-OCT-2023 17:01, No significant change was found Referred By: Betty Sadler Electronically Signed By:MELITON SIM MD
[2023-10-09 13:25] LABS: MANUAL DIFF FLAG NO
[2023-10-09 13:31] LABS: Basophils Percent Auto 0.5 % (0-2); Eosinophils Absolute Auto 0.2 X10*3/uL (0.0-0.4); Eosinophils Percent Auto 2.3 % (0-4); Hematocrit 47.7 % (37.0-47.0); Hemoglobin 16.5 g/dl (12.0-16.0); Imm Gran Abs Auto 0.02 X10*3/uL (0.00-0.03); Imm Gran Pct Auto 0.3 % (0.0-0.4); Lymphocytes Absolute Auto 2.6 X10*3/uL (1.2-4.9); Lymphocytes Percent Auto 40.1 % (20-40); Mean Corpuscular HGB Conc 34.6 g/dl (31.0-35.0); Mean Corpuscular Hemoglobin 31.1 pg (27.0-33.0); Mean Corpuscular Volume 89.8 fL (80.0-98.0); Mean Platelet Volume 9.8 fL (9.4-12.3); Monocytes Absolute Auto 0.5 X10*3/uL (0.1-1.2); Monocytes Percent Auto 7.8 % (2-11); Neutrophils Absolute Auto 3.2 x10*3/uL (2.0-8.3); Platelet Count 210 X10*3/uL (160-400); Red Blood Count 5.31 X10*6/uL (4.20-5.50); Red Cell Distribution Width 13.7 % (11.0-16.0); White Blood Count 6.5 X10*3/uL (4.8-10.8)
[2023-10-09 13:42] LABS: Alanine Aminotransferase 22 U/L (0-31); Albumin Level 3.5 g/dL (3.5-5.0); Alkaline Phosphatase 105 U/L (39-117); Anion Gap 11 (12-20); Aspartate Amino Transferase 19 U/L (5-31); Bilirubin Direct 0.1 mg/dL (0.0-0.5); Bilirubin Total 0.3 mg/dL (0.0-1.0); Blood Urea Nitrogen 18 mg/dL (9-16); Calcium 8.6 mg/dL (8.4-10.2); Carbon Dioxide 23 mmol/L (22-29); Chloride 113 mmol/L (96-108); Estimated Glomerular Filt Rate 52; Glucose Random 118 mg/dL (60-115); Potassium 3.8 mmol/L (3.3-5.1); Sodium 143 mmol/L (135-145)
[2023-10-09 13:53] LABS: Troponin-I High Sensitivity < 2.7 ng/L (<3.5-17.0)
[2023-10-09] MEDS: Cyclobenzaprine HCl 10 MG TABLET PO (14:45)
[2023-10-09] MEDS: Ketorolac Tromethamine 15 MG/ML VIAL IVPUSH (14:45)
[2023-10-09] MEDS: Acetaminophen 325 MG TABLET 975 MG PO (14:45)
[2023-10-09] MEDS: Morphine Sulfate 4 MG/ML CARTRIDGE IVPUSH (14:45)
[2023-10-09] MEDS: Lidocaine 4 % Patch ADH..PATCH 1 PATCH TRANSDERMA (14:46)
[2023-10-09 15:46] VITALS: BP 124/70; PULSE 76; RESP 16; TEMP 36.9; O2SAT 97
== END 2023-10-09 15:47 | disposition home or self-care (01) ==
PROVIDERS: Physician Assistant Medical; Emergency Provider Emergency Medicine; PCP Family Medicine
DX: M54.12 Radiculopathy, cervical region (principal); M54.2 Cervicalgia; I10 Essential (primary) hypertension; I49.1 Atrial premature depolarization; Z79.899 Other long term (current) drug therapy
CPT/HCPCS: 36415; 80048; 80076; 84484; 85025; 93005; 96374; 96375; 99283; 99284; J1885; J2270

== ENCOUNTER → 2023-10-09 12:57 | Outpatient (BNV) | payer MEDICARE, SELFPAY | PROVIDERS: Emergency Provider Emergency Medicine; PCP Family Medicine; Visit Provider Internal Medicine Cardiovascular Disease | DX: R94.31 Abnormal electrocardiogram [ECG] [EKG] (principal) | CPT/HCPCS: 93010 ==

== ENCOUNTER 2023-11-18 13:23 | Outpatient (REF) | payer MEDICARE, SELFPAY ==
[2023-11-18 16:08] LABS: Cholesterol 238 mg/dL (<200); HDL Cholesterol 72 mg/dL (>40); LDL Cholesterol Calculated 142 mg/dL (<100); Triglycerides 121 mg/dL (<150)
[2023-11-20 02:13] LABS: LDL Cholesterol Direct 152 mg/dL (<100)
== END 2023-11-18 13:24 | disposition home or self-care (01) ==
LOC: HO.LAB 13:23
PROVIDERS: PCP Family Medicine; Visit Provider Internal Medicine
DX: E78.2 Mixed hyperlipidemia (principal); R00.2 Palpitations; R07.89 Other chest pain; I10 Essential (primary) hypertension; I49.1 Atrial premature depolarization; G47.33 Obstructive sleep apnea (adult) (pediatric)
CPT/HCPCS: 36415; 80061; 83721; 99212

== ENCOUNTER 2023-11-18 13:23 | Outpatient (AMB) | payer MEDICARE, SELFPAY ==
--- NOTE | 2023-11-18 13:24 | MHC.OFFVIS ---
Vital Signs 11/18/23 13:25 Height 5 ft 5 in Weight 224 lb 13.944 oz BMI 37.4 BP 120/80 Blood Pressure Location Lt brachial Position Sitting Pulse 101 H Intake Visit Reasons: 1 yr f/up(rs) Intake Note: 1 year follow-up feeling good little palpitations Health Technician Required: No Allergies prochlorperazine [From COMPAZINE] Allergy (Severe, Verified 10/09/23 12:50) ANXIETY codeine [CODEINE] Allergy (Unknown, Verified 10/09/23 12:50) HALLUCINATIONS droperidol [From INAPSINE] Allergy (Unknown, Verified 10/09/23 12:50) TACHYCARDIA Sulfa (Sulfonamide Antibiotics) [SULFA (SULFONAMIDE ANTIBIOTICS)] Allergy (Unknown, Verified 10/09/23 12:50) HIVES sulfacetamide Allergy (Unknown, Verified 10/09/23 12:50) unk oxycodone [From PERCODAN] Adverse Reaction (Unknown, Verified 10/09/23 12:50) NAUSEA & VOMITING, HALLUCINATIONS Compazine Allergy (Unknown, Uncoded 10/08/23 16:33) unk From REGLAN Allergy (Unknown, Uncoded 10/08/23 16:33) UNKNOWN Percodan Allergy (Unknown, Uncoded 10/08/23 16:33) unk Statins Adverse Reaction (Unknown, Uncoded 10/08/23 16:33) muscle aches Medication List - Last Reconciled 11/18/23 by Camron Wharton MD albuterol sulfate 90 mcg/actuation inhalation budesonide-formoterol 160-4.5 mcg/actuation (Symbicort) inhalation cefuroxime axetil 250 mg PO Q12H 7 days cyclobenzaprine 10 mg PO BEDTIME PRN 7 days duloxetine 60 mg PO DAILY escitalopram oxalate 10 mg PO DAILY evolocumab (Repatha SureClick) 140 mg subcut Q2W 90 days gabapentin mg PO gabapentin 600 mg PO BEDTIME ibuprofen 400 mg PO Q8H PRN naproxen 500 mg PO BID PRN 7 days polyethylene glycol 3350 (Miralax) 17 grams PO BID PRN topiramate 50 mg PO BEDTIME topiramate 25 mg PO BID verapamil ER 120 mg PO DAILY HPI Comments Details: Sade returns for follow-up. In the past, she has been seen for atypical chest pains as well as palpitations at different times. She remains on verapamil in that regard for ectopy. Then, she was referred back because of very high lipids. Currently, taking Repatha. Statin intolerant. Overall, she states she feels fine. She still has random chest pains that happen any time. Nothing exertional clearly. No documented coronary disease. Continues to have social stress from family issues. [facility] Medical History (Updated 11/18/23 @ 13:57 by Camron Wharton MD) ALKA (obstructive sleep apnea) Atypical chest pain PAC (premature atrial contraction) Essential hypertension Surgical History Hx of cataract surgery History of cholecystectomy History of hysterectomy Family History Father CVD (cardiovascular disease) Mother No problems noted. Social History Alcohol intake: current Alcohol intake frequency: holidays/special occasions only Alcohol type: wine Patient Tobacco Use Status: Never used Tobacco Review of Systems Const Denies chills, Denies fatigue, Denies fever(s), Denies frequent falls, Denies weakness, Denies weight gain and Denies weight loss ENT Denies dizziness Card Denies chest pain, Denies leg edema, Denies lightheadedness, Denies palpitations, Denies dyspnea, Denies dyspnea on exertion, Denies orthopnea and Denies other (loss of consciousness) Resp Denies cough, Denies dyspnea and Denies dyspnea on exertion GI Denies hematochezia and Denies change in stool character Musc Denies abnormal gait, Denies muscle weakness, Denies numbness, Denies radiating pain into limb and Denies tingling Neuro Denies abnormal gait, Denies dizziness, Denies frequent falls, Denies numbness, Denies tingling and Denies weakness Endo Denies fatigue and Denies palpitations Physical Exam Vital Signs: Last Vital Signs Pulse 101 H 11/18/23 13:25 BP 120/80 11/18/23 13:25 BMI result Body Mass Index 37.4 Const General: comfortable and no acute distress Orientation/consciousness: patient oriented x3 HEENT Other: Unremarkable Head: Yes normal to inspection Neck Neck: Yes normal visual inspection Chest Chest palpation & inspection: normal inspection of the chest Resp Auscultation: clear to auscultation bilaterally Cardio Palpation: normal PMI Heart sounds: S1 normal heart sound present, S2 normal heart sound present, no gallops, no murmurs and no rubs GI Palpation (GI): Soft to palpation Back/Spine/Pelvis Other: unremarkable Skin General skin exam: no rashes or lesions noted Neuro General: patient oriented x3 Extrem General: Yes normal to inspection Psych Mental Status: mental status grossly normal Assessment & Plan Assessment & Plan (1) Hyperlipidemia: Code(s): E78.5 - Hyperlipidemia, unspecified Category: Medical Plan: Baseline lipids - LDL is 309 mg/dL. Triglycerides 126 mg/dL. On Repatha. Repeat labs from last year showed LDL of 185 mg/dL. It is still high but much lower than before. Not tolerant of statins. Can recheck lipids. (2) Essential hypertension: Code(s): I10 - Essential (primary) hypertension Category: Medical Plan: She was on amlodipine but apparently due to migraine headaches, this has been switched to verapamil. Stable. No further changes. (3) PAC (premature atrial contraction): Code(s): I49.1 - Atrial premature depolarization Category: Medical Plan: Holter in the past had shown short runs of supraventricular ectopy but very brief. Already on verapamil that should help. Otherwise, primarily weight loss. (4) ALKA (obstructive sleep apnea): Code(s): G47.33 - Obstructive sleep apnea (adult) (pediatric) Category: Medical Plan: Per patient, cannot tolerate CPAP. Orders: Orders LDL Cholesterol Direct Today E78.2 - Mixed hyperlipidemia Lipid Panel 08/25/23 E78.5 - Hyperlipidemia, unspecified Coding Level of Care Code Est Pt Level 4 (97623) Diagnoses Hyperlipidemia E78.5 Essential hypertension I10 PAC (premature atrial contraction) I49.1 ALKA (obstructive sleep apnea) G47.33
[2023-11-18 13:25] VITALS: BP 120/80; PULSE 101; BMI 37.4
== END 2023-11-18 13:55 | disposition home or self-care (01) ==
PROVIDERS: PCP Family Medicine; Visit Provider Internal Medicine
DX: E78.5 Hyperlipidemia, unspecified (principal); I10 Essential (primary) hypertension; I49.1 Atrial premature depolarization; G47.33 Obstructive sleep apnea (adult) (pediatric)
CPT/HCPCS: 99214

== ENCOUNTER 2024-12-08 11:37 | Outpatient (REF) | payer MEDICARE, SELFPAY ==
[2024-12-08 12:37] LABS: Alanine Aminotransferase 19 U/L (0-31); Albumin Level 4.0 g/dL (3.5-5.0); Alkaline Phosphatase 103 U/L (39-117); Aspartate Amino Transferase 25 U/L (5-31); Cholesterol 254 mg/dL (<200); HDL Cholesterol 68 mg/dL (>40); Total Protein 6.5 g/dL (6.5-8.0); Triglycerides 99 mg/dL (<150)
== END 2024-12-08 11:38 | disposition home or self-care (01) ==
LOC: HO.LAB 11:37
PROVIDERS: Internal Medicine; PCP Family Medicine; Visit Provider Psychiatry & Neurology Psychiatry
DX: I10 Essential (primary) hypertension (principal); I49.1 Atrial premature depolarization; G47.33 Obstructive sleep apnea (adult) (pediatric); E78.5 Hyperlipidemia, unspecified
CPT/HCPCS: 36415; 80061; 80076; 93005; 99212

== ENCOUNTER 2024-12-08 13:57 | Outpatient (AMB) | payer MEDICARE, SELFPAY ==
[2024-12-08 14:01] VITALS: BP 110/64; PULSE 87; BMI 36.8
--- NOTE | 2024-12-08 14:01 | A.OFFVIS_ITS ---
Vital Signs 12/08/24 14:01 Height 5 ft 5 in Weight 221 lb 5.506 oz BMI 36.8 BP 110/64 Blood Pressure Location Lt brachial Position Sitting Pulse 87 Pulse Source Monitor Intake Visit Reasons: r/s 11/17/24 1 yr followup w/ekg Human Resources Records Clerk Required: No Accompanied by: Self / Same As Patient Allergies prochlorperazine (From COMPAZINE) Allergy (Severe, Verified 10/09/23 12:50) ANXIETY codeine (CODEINE) Allergy (Unknown, Verified 10/09/23 12:50) HALLUCINATIONS droperidol (From INAPSINE) Allergy (Unknown, Verified 10/09/23 12:50) TACHYCARDIA Sulfa (Sulfonamide Antibiotics) (SULFA (SULFONAMIDE ANTIBIOTICS)) Allergy (Unknown, Verified 10/09/23 12:50) HIVES sulfacetamide Allergy (Unknown, Verified 10/09/23 12:50) unk oxycodone (From PERCODAN) Adverse Reaction (Unknown, Verified 10/09/23 12:50) NAUSEA & VOMITING, HALLUCINATIONS Compazine Allergy (Unknown, Uncoded 10/08/23 16:33) unk From REGLAN Allergy (Unknown, Uncoded 10/08/23 16:33) UNKNOWN Percodan Allergy (Unknown, Uncoded 10/08/23 16:33) unk Statins Adverse Reaction (Unknown, Uncoded 10/08/23 16:33) muscle aches Medication List - Last Reconciled 12/08/24 by Camron Wharton MD albuterol sulfate 90 mcg/actuation inhalation duloxetine 60 mg PO DAILY escitalopram oxalate 10 mg PO DAILY ezetimibe (Zetia) 10 mg PO DAILY gabapentin mg PO gabapentin 600 mg PO BEDTIME ibuprofen 400 mg PO Q8H PRN naproxen 500 mg PO BID PRN 7 days verapamil ER 120 mg PO DAILY HPI Comments Details: Sade returns for follow-up. In the past, she has been seen for atypical chest pains as well as palpitations at different times. She remains on verapamil in that regard for ectopy. Then, she was referred back because of very high lipids. She was started on Repatha as she was statin intolerant. However, it seems that it is costing her over 700 dollars and hence she stopped taking them. Only on Zetia. She states that she continues to have a lot of social stress with her family. Additionally, she apparently got diagnosed with a brain tumor and does been receiving radiation for the same. Actual details are not very clear but she states it is very close to the brainstem. She has lost some weight since I last saw her. Otherwise, from the cardiac standpoint she has generally okay. No new concerns like exertional angina. Otherwise, getting along okay in spite of all the above. [facility] Medical History ALKA (obstructive sleep apnea) Atypical chest pain PAC (premature atrial contraction) Essential hypertension Surgical History Hx of cataract surgery History of cholecystectomy History of hysterectomy Family History Father CVD (cardiovascular disease) Mother No problems noted. Social History Alcohol intake: current Alcohol intake frequency: holidays/special occasions only Alcohol type: wine Patient Tobacco Use Status: Never used Tobacco Review of Systems Const Denies chills, Denies fatigue, Denies fever(s), Denies frequent falls, Denies weakness, Denies weight gain and Denies weight loss ENT Denies dizziness Card Denies chest pain, Denies leg edema, Denies lightheadedness, Denies palpitations, Denies dyspnea and Denies dyspnea on exertion Resp Denies cough, Denies dyspnea and Denies dyspnea on exertion GI Denies hematochezia Musc Denies abnormal gait, Denies muscle weakness, Denies numbness, Denies radiating pain into limb and Denies tingling Neuro Denies abnormal gait, Denies dizziness, Denies frequent falls, Denies numbness, Denies tingling and Denies weakness Endo Denies fatigue and Denies palpitations Physical Exam Vital Signs: Last Vital Signs Pulse 87 12/08/24 14:01 BP 110/64 12/08/24 14:01 BMI result Body Mass Index 36.8 Const General: comfortable and no acute distress Orientation/consciousness: patient oriented x3 HEENT Other: Unremarkable Head: Yes normal to inspection Neck Neck: Yes normal visual inspection Chest Chest palpation & inspection: normal inspection of the chest Resp Auscultation: clear to auscultation bilaterally Cardio Palpation: normal PMI Heart sounds: S1 normal heart sound present, S2 normal heart sound present, no gallops, no murmurs and no rubs GI Palpation (GI): Soft to palpation Back/Spine/Pelvis Other: unremarkable Skin General skin exam: no rashes or lesions noted Neuro General: patient oriented x3 Extrem General: Yes normal to inspection Psych Mental Status: mental status grossly normal Office Procedures EKG Details: EKG with underlying sinus rhythm at 87/Min; no ischemic changes; [place] [id number], Complete Assessment & Plan Assessment & Plan (1) Hyperlipidemia: Code(s): E78.5 - Hyperlipidemia, unspecified Category: Medical Plan: Baseline lipids - LDL is 309 mg/dL. Triglycerides 126 mg/dL. Unable to take Repatha because of high cost. She remains only on Zetia. Statin intolerant. Any case, LDL seems significantly better at 167 mg/dL- about 50% of what she was before. Triglycerides under control at 99 mg/dL. Other possibility would be to lose weight as much able which should bring the lipids down further. Myocardial perfusion imaging study from 2023 was reported normal. Echocardiogram from 2023 with LVEF of 60-65%; peak GLS-17.4%; no significant valvular findings. (2) Essential hypertension: Code(s): I10 - Essential (primary) hypertension Category: Medical Plan: She was on amlodipine but apparently due to migraine headaches, this has been switched to verapamil. Blood pressure is stable today. (3) PAC (premature atrial contraction): Code(s): I49.1 - Atrial premature depolarization Category: Medical Plan: Holter in the past had shown short runs of supraventricular ectopy but very brief. Already on verapamil that should help. She has not had any recent issues with this. (4) ALKA (obstructive sleep apnea): Code(s): G47.33 - Obstructive sleep apnea (adult) (pediatric) Category: Medical Plan: Per patient, cannot tolerate CPAP. Plan Total time spent including review of data, counseling, documentation, coordination of care-32 beats. Coding Level of Care Code Est Pt Level 4 (26966) Diagnoses Hyperlipidemia E78.5 Essential hypertension I10 PAC (premature atrial contraction) I49.1 ALKA (obstructive sleep apnea) G47.33 CPT Codes EKG - CPT: 12157-Eljmhdvxysniruzth, Complete ([id number])
== END 2024-12-08 14:26 | disposition home or self-care (01) ==
LOC: HO.HCS 13:57
PROVIDERS: PCP Family Medicine; Visit Provider Internal Medicine
DX: E78.5 Hyperlipidemia, unspecified (principal); I10 Essential (primary) hypertension; I49.1 Atrial premature depolarization; G47.33 Obstructive sleep apnea (adult) (pediatric)
CPT/HCPCS: 93010; 99214